=== PATIENT | male | born 1955 | race Caucasian/White ===

== ENCOUNTER 2016-09-17 15:47 | Emergency (ER) | payer MEDICARE ==
[2016-09-17] MEDS ORDERED: DUONEB 0.5-3 MG/3 ml Neb IH ONE ×2 (16:11→16:24)
--- NOTE | 2016-09-17 16:16 | ERPHSYRPT ---
- History of Present Illness Time Seen by Provider: 09/17/16 16:00 Source: patient Patient Subjective Stated Complaint: Pt c/o of being a little short of breath since last night and having pain in the chest that radiates to the shoulders and back when he takes a deep breath. Pt also c/o dizziness for the last couple of days. Triage Nursing Assessment: Pt alert and oriented x3. skin pink warm and dry. afebrile. lung sounds diminished bilaterally. respirations shallow and nonlabored Physician History: CC: short of air Hx: 60 y/o patient of Dr Walker with hx of COPD. He quit smoking 3 years ago. He has couple day hx of increased shortness of breath. Some nonproductive cough. No fever or chills. Uses nebs at home. No home oxygen. No hx of DM. No chest pain. Timing/Duration: day(s) (couple) Severity of Dyspnea-Max: moderate Severity of Dyspnea-Current: moderate Allergies/Adverse Reactions: erythromycin base Allergy (Verified 10/14/15 09:25) Home Medications: Atorvastatin Calcium [Lipitor 20MG Tablet] 20 mg PO BID 10/14/15 [History] Fenofibrate,Micronized 145 mg* [Tricor 145 MG] 145 mg PO DAILY 10/14/15 [ History] Hydrocodone/APAP 10/325 mg [[place] 10/325 MG Tablet] 1 tab PO Q4-6HPRN PRN 10/14/15 [History] Albuterol 2.5 mg/3 ml Neb [Proventil 2.5 mg/3 ml Neb] 2.5 mg IH Q4HPRN PRN 09/17/16 [History] Aspirin 81 mg PO DAILY 09/17/16 [History] Hx Tetanus, Diphtheria Vaccination/Date Given: No Hx Influenza Vaccination/Date Given: Yes (February 2016) Hx Pneumococcal Vaccination/Date Given: Yes - Review of Systems Constitutional: Malaise, No Fever, No Chills Eyes: No Symptoms Ears, Nose, & Throat: No Symptoms Respiratory: Cough, Dyspnea Cardiac: No Chest Pain Abdominal/Gastrointestinal: No Abdominal Pain, No Nausea, No Vomiting Skin: No Rash Neurological: No Headache All Other Systems: Reviewed and Negative - Past Medical History Pertinent Past Medical History: Yes Cardiac History: High Cholesterol Respiratory History: COPD Other Medical History: "bad back" - Past Surgical History Past Surgical History: Yes Musculoskeletal: Orthopedic Surgery Other Surgical History: back surgery x3 - Social History Smoking Status: Former smoker Exposure to second hand smoke: Yes Drug Use: none Patient Lives Alone: No - Nursing Vital Signs Nursing Vital Signs: Initial Vital Signs Temperature 97.8 F Pulse Rate 88 Respiratory Rate 24 Blood Pressure [Right Arm] 116/68 Pain Intensity 3 - Physical Exam General Appearance: alert Eye Exam: PERRL/EOMI Ears, Nose, Throat Exam: normal pharynx Neck Exam: normal inspection, non-tender, supple Respiratory Exam: diminished breath sounds, No crackles/rales, No wheezing Cardiovascular/Chest Exam: regular rate/rhythm Abdominal/Gastrointestinal Exam: soft, No tenderness, No distention Neurologic Exam: alert, oriented x 3, cooperative, sensation nml, No motor deficits Skin Exam: warm, dry, No rash SpO2 Interpretation: normal SpO2: 96 Oxygen Delivery: Room Air - Course Nursing assessment & vital signs reviewed: Yes EKG Interpreted by Me: RATE (99), Sinus Rhythm, NORMAL AXIS, NORMAL INTERVALS ( QTc 442), NORMAL QRS, NORMAL ST-T - Radiology Exams cxr X-ray Interpretation: Teleradiologist Report (nonacute hyperinflated chest) Ordered Tests: Active Orders 24 hr Category Date Time Status EKG-ER Only STAT Care 09/17/16 16:11 Active IV Insertion STAT Care 09/17/16 16:11 Active CHEST 2 VIEWS (PA AND LAT) Stat Exams 09/17/16 16:11 Completed BMP Stat Lab 09/17/16 16:05 Completed CBC W DIFF Stat Lab 09/17/16 16:05 Completed Respiratory Nebulizer STAT RT 09/17/16 16:12 Active Medication Summary Discontinued Medications Generic Name Dose Route Start Last Admin Trade Name Freq PRN Reason Stop Dose Admin Albuterol/Ipratropium 3 ml 09/17/16 16:11 Duoneb 0.5-3 Mg/3 Ml Neb IH 09/17/16 16:12 STAT ONE Albuterol/Ipratropium Confirm 09/17/16 16:24 Duoneb 0.5-3 Mg/3 Ml Neb Administered 09/17/16 16:25 Dose 3 ml IH .STK-MED ONE Methylprednisolone Sodium Succinate 125 mg 09/17/16 16:11 09/17/16 16:25 Solu-Medrol 125 Mg IV 09/17/16 16:12 125 mg STAT ONE Administration Methylprednisolone Sodium Succinate Confirm 09/17/16 16:18 Solu-Medrol 125 Mg Administered 09/17/16 16:19 Dose 125 mg .ROUTE .STK-MED ONE Lab/Rad Data: Laboratory Result Diagrams 09/17/16 16:05 09/17/16 16:05 Laboratory Results 09/17/16 09/17/16 Range/Units 16:05 16:05 WBC 7.7 (4.0-10.5) K/mm3 RBC 5.14 (4.1-5.6) M/mm3 Hgb 14.7 (12.5-18.0) gm/dl Hct 45.0 (42-50) % MCV 87.5 (78-100) fl MCH 28.6 (26-32) pg MCHC 32.7 (32-36) g/dl RDW 14.2 H (11.5-14.0) % Plt Count 263 (150-450) K/mm3 MPV 10.0 H (6-9.5) fl Gran % 63.3 (36.0-66.0) % Lymphocytes % 23.8 L (24.0-44.0) % Monocytes % 9.6 (0.0-12.0) % Eosinophils % 2.8 (0.00-5.0) % Basophils % 0.5 (0.0-0.4) % Basophils # 0.04 (0-0.4) Sodium 140 (136-145) mEq/L Potassium 3.9 (3.5-5.1) mEq/L Chloride 104 (98-107) mEq/L Carbon Dioxide 25.8 (21-32) mEq/L Anion Gap 13.8 (5-15) MEQ/L BUN 18 (9-20) mg/dL Creatinine 1.00 (0.55-1.30) mg/dl Estimated GFR > 60 ML/MIN Glucose 172 H (70-110) MG/DL Calcium 9.0 (8.5-10.1) mg/dL - Progress Progress Note: 09/17/16 16:51 Pt stable and feels better after meds. Will release with instructions. Counseled pt/family regarding: lab results, diagnosis, need for follow-up, rad results - Departure Time of Disposition: 16:53 Departure Disposition: Home Clinical Impression: COPD exacerbation Condition: Fair Critical Care Time: No Referrals: SANDOR WALKER MD [Primary Care Provider] - Instructions: Chronic Obstructive Pulmonary Disease Additional Instructions: Rx prednisone. Rx doxycycline. Use your albuterol every 4 hours. Follow up with Dr Walker Tuesday. You need to have your sugar rechecked. Prescriptions: Doxycycline Hyclate [Vibramycin] 1 cap PO BID #20 capsule Prednisone 20 mg [Deltasone 20 mg] 2 tab PO DAILY #10 tablet
[2016-09-17] MEDS ORDERED: solu-MEDROL 125 MG ONE (16:18)
[2016-09-17] MEDS: solu-MEDROL 125 MG IV ONE (16:25)
[2016-09-17 16:35] LABS: BASOPHIL % 0.5 % (0.0-0.4); Eosinophil % 2.8 % (0.00-5.0); Granulocytes % 63.3 % (36.0-66.0); Lymphocytes % 23.8 % (24.0-44.0); Mean Cell Volume 87.5 fl (78-100); Mean Corpuscular Hemoglobin 28.6 pg (26-32); Monocytes % 9.6 % (0.0-12.0); Platelet Count 263 K/mm3 (150-450); Red Blood Count 5.14 M/mm3 (4.1-5.6); Red Cell Distribution Width 14.2 % (11.5-14.0); White Blood Count 7.7 K/mm3 (4.0-10.5)
--- NOTE | 2016-09-17 16:36 | XRAY ---
Indication: Chest pain. Short of breath. Comparison: None PA/lateral chest hyperinflated with a few calcified granulomas. No focal infiltrate, consolidation, or large effusion. Heart is not enlarged. Vascularity normal. Bony thorax intact with minimal degenerative changes. Impression: Nonacute hyperinflated chest with chronic features.
[2016-09-17 16:44] LABS: ANION GAP 13.8 MEQ/L (5-15); BLOOD UREA NITROGEN 18 mg/dL (9-20); CHLORIDE 104 mEq/L (98-107); Carbon Dioxide 25.8 mEq/L (21-32); Glucose 172 MG/DL (70-110); Potassium 3.9 mEq/L (3.5-5.1); SODIUM 140 mEq/L (136-145)
[2016-09-17 17:06] VITALS: BP 115/72; PULSE 92; O2SAT 94
== END 2016-09-17 17:07 | disposition home or self-care (01) ==
LOC: ED 15:47
DX: J44.1 Chronic obstructive pulmonary disease with (acute) exacerbation (principal)
CPT/HCPCS: 36000; 36415; 71020; 80048; 85025; 93005; 94640; 96374; 99284; J2930; A9270-GY

== ENCOUNTER 2023-03-03 05:52 | Day surgery (SDC) | payer MEDICARE ==
[2023-03-03] MEDS ORDERED: BETADINE 5% OPHTHALMIC 30 ML OP ONE (06:00)
[2023-03-03] MEDS ORDERED: TETRACAINE 0.5% STERI-UNIT SOL OP ONE ×2 (06:00)
[2023-03-03] MEDS ORDERED: Ak-Dilate OPHTHALMIC*** 1.065 ML, Cyclogyl 1% OPHTH SOL 1.065 ML, GATIFLOXACIN 0.5% OPH... OP ONE ×4 (06:00)
[2023-03-03] MEDS ORDERED: NON-FORMULARY ITEM OP ONE (06:00)
[2023-03-03] MEDS ORDERED: Zofran 4 MG/2 ML VIAL IV PRN (06:00)
[2023-03-03] MEDS ORDERED: Lactated Ringers 1,000 ML IV SCH ×2 (06:00→08:30)
[2023-03-03] MEDS ORDERED: cefUROXime sodium 0.005 GM in Sodium Chloride Flush 30 ML*** 0.5 ML IJ ONE (06:00)
[2023-03-03] MEDS ORDERED: ACETAZOLAMIDE 250 MG TABLET PO ONE (06:00)
[2023-03-03] MEDS ORDERED: Lactated Ringers 1,000 ML IV ONE (06:18)
[2023-03-03] MEDS ORDERED: Epinephrine Preservative Free 1 MG/ML IJ ONE (08:00)
[2023-03-03] MEDS ORDERED: Versed 2 MG/2 ML Injection ONE (08:40)
[2023-03-03] MEDS ORDERED: SUBLIMAZE 100 MCG/2 ML ONE (08:40)
[2023-03-03] MEDS ORDERED: DIPRIVAN 200 MG/20 ML IV ONE (08:40)
[2023-03-03 09:06] VITALS: RESP 16
[2023-03-03 09:10] VITALS: O2SAT 93
[2023-03-03 09:15] VITALS: BP 111/86; PULSE 80; TEMP 97.7
== END 2023-03-03 09:22 | disposition home or self-care (01) ==
LOC: SDC 05:52
PROVIDERS: ATTEND Ophthalmology
DX: H25.812 Combined forms of age-related cataract, left eye (principal)
CPT/HCPCS: C1780; J0171; J2250; J2704; J3010; A9270-GY

== ENCOUNTER 2023-05-03 06:04 | Day surgery (SDC) | payer MEDICARE ==
[~2023-05-03 06:04] MED LIST: Ak-Dilate OPHTHALMIC*** 1.065 ML, Cyclogyl 1% OPHTH SOL 1.065 ML, GATIFLOXACIN 0.5% OPH... OP ONE; BETADINE 5% OPHTHALMIC 30 ML OP ONE; NON-FORMULARY ITEM OP ONE; TETRACAINE 0.5% STERI-UNIT SOL OP ONE; cefUROXime sodium 0.005 GM in Sodium Chloride Flush 30 ML*** 0.5 ML IJ ONE
[2023-05-03] MEDS ORDERED: Lactated Ringers 1,000 ML IV ONE (06:22)
[2023-05-03] MEDS: Lactated Ringers 1,000 ML IV SCH ×2 (06:24→06:49)
[2023-05-03 06:35] VITALS: RESP 16
[2023-05-03] MEDS ORDERED: Epinephrine Preservative Free 1 MG/ML IJ ONE (08:00)
[2023-05-03] MEDS ORDERED: ACETAZOLAMIDE 250 MG TABLET PO ONE (08:00)
[2023-05-03] MEDS ORDERED: Zofran 4 MG/2 ML VIAL IV PRN (08:00)
[2023-05-03] MEDS ORDERED: DIPRIVAN 200 MG/20 ML IV ONE (08:57)
[2023-05-03] MEDS ORDERED: Versed 2 MG/2 ML Injection ONE (09:04)
[2023-05-03] MEDS ORDERED: SUBLIMAZE 100 MCG/2 ML ONE (09:05)
[2023-05-03 09:26] VITALS: TEMP 97.7
[2023-05-03 09:45] VITALS: BP 131/92; PULSE 89; O2SAT 93
== END 2023-05-03 09:45 | disposition home or self-care (01) ==
LOC: SDC 06:04
PROVIDERS: ATTEND Ophthalmology
DX: H25.811 Combined forms of age-related cataract, right eye (principal)
CPT/HCPCS: C1780; J0171; J2250; J2704; J3010; A9270-GY

== ENCOUNTER 2024-01-22 16:57 | Emergency (ER) | payer MEDICARE ==
[2024-01-22 17:18] VITALS: RESP 18; TEMP 97.9; O2SAT 95
[2024-01-22] MEDS ORDERED: TORAdol 30 mg Injection ONE (17:54)
[2024-01-22] MEDS: TORAdol 30 mg Injection IM ONE (17:55)
--- NOTE | 2024-01-22 18:06 | ERPHSYRPT ---
- History of Present Illness Time Seen by Provider: 01/22/24 17:15 Source: patient Exam Limitations: no limitations Patient Subjective Stated Complaint: Right foot/ankle pain Triage Nursing Assessment: Patient ambulated back to ED and transferred self to bed. Patient A+O x3. Patient's skin pink, warm and dry. Patient complains of right foot/ankle pain for over a year, but the pain is getting worse the past couple of days. Patient states about a year ago he had a broken right foot and never let it heal. Patient's right foot/ankle noted to be swollen and bruised. Patient complains of pain to right foot/ankle /10, but worse when bearing weigh t. Physician History: 68 years old male with history of arthritis, chronic back pain and fracture right ankle almost a year ago, was placed in a cast which he took off the very next day because he went on a fishing trip and it got red and never saw podiatry/orthopedics again. Patient reports having pain for almost a year but for almost 1 month is progressively worsening and especially for 2 days. Patient reports minimal swelling around ankle/proximal foot but denies any fall or trauma. Hurts to ambulate. Patient denies any numbness or tingling sensation in the toes. Does take [place] at home with no significant relief Has minimal tenderness lateral malleolus. No tenderness in the foot or swelling. Distal neurovascularly intact. Is given Toradol for symptomatic relief. I have obtained x-rays foot and ankle which are negative for new acute fracture dislocation but does have old healing fracture related changes reviewed by me, official report is pending. I believe patient has some arthritic changes with chronic pain and could have some element of sprain. I placed him in a long walking boot, recommended outpatient orthopedic/podiatry follow-up. Recommended continue with [place] which she takes for his back pain and will give ibuprofen and outpatient follow-up. Discussed signs symptoms of worsening needing return to ER which she seems understanding. Stable for discharge. Allergies/Adverse Reactions: erythromycin base Allergy (Verified 01/22/24 17:06) Home Medications: Atorvastatin Calcium [Lipitor 20MG Tablet] 20 mg PO DAILY 10/14/15 [History] Fenofibrate,Micronized 145 mg* [Tricor 145 MG] 145 mg PO DAILY 10/14/15 [History] Hydrocodone/APAP 10/325 mg [[place] 10/325 MG TableT] 1 tab PO Q6H PRN PRN 10/14/15 [History] Hx Tetanus, Diphtheria Vaccination/Date Given: No Hx Influenza Vaccination/Date Given: No Hx Pneumococcal Vaccination/Date Given: Yes Immunizations Up to Date: Yes Travel Risk - International Travel Have you traveled outside of the country in past 3 weeks: No - Emerging Infectious Disease Are you exhibiting symptoms associated with any current EIDs: No - Review of Systems Constitutional: No Symptoms Ears, Nose, & Throat: No Symptoms Respiratory: No Symptoms Cardiac: No Symptoms Abdominal/Gastrointestinal: No Symptoms Musculoskeletal: Joint Pain, Joint Swelling Skin: No Symptoms Neurological: No Symptoms Hematologic/Lymphatic: No Symptoms - Past Medical History Pertinent Past Medical History: Yes Neurological History: No Pertinent History ENT History: Cataracts Cardiac History: High Cholesterol Respiratory History: COPD Endocrine Medical History: No Pertinent History Musculoskeletal History: No Pertinent History GI Medical History: No Pertinent History History: No Pertinent History Psycho-Social History: No Pertinent History Male Reproductive Disorders: No Pertinent History Other Medical History: "bad back" - Past Surgical History Past Surgical History: Yes Neuro Surgical History: No Pertinent History Cardiac: No Pertinent History Respiratory: No Pertinent History Gastrointestinal: Hernia Repair, Other Genitourinary: No Pertinent History Musculoskeletal: Orthopedic Surgery Male Surgical History: No Pertinent History Other Surgical History: back surgery x3 , hiatal hernia repair, orthopedic suregery for R leg frature with hardware - Social History Smoking Status: Former smoker How long have you smoked: 45 years Exposure to second hand smoke: No Drug Use: none Patient Lives Alone: No - Social Determinants of Health Will the patient participate in the screening: Yes Do you worry about a steady place to live?: No Do you have any problems with any of the following?: No known problems In the past 12 months,have you had to go without utilities?: No Transportation Issues: No Has anyone in your support network made you feel unsafe?: No Have you or anyone in your house had to go without enough: No - Nursing Vital Signs Nursing Vital Signs: Initial Vital Signs Temperature 97.9 F 01/22/24 17:09 Pulse Rate 95 H 01/22/24 17:09 Respiratory Rate 18 01/22/24 17:09 Blood Pressure 145/92 01/22/24 17:09 O2 Sat by Pulse Oximetry 95 01/22/24 17:09 Pain Scale Pain Intensity 0 - Physical Exam General Appearance: no apparent distress, alert Neck Exam: normal inspection, full range of motion Cardiovascular/Respiratory Exam: normal breath sounds, regular rate/rhythm Ankle Exam: right ankle: bone tenderness (Malleolus), limited range of motion, soft tissue tenderness, left ankle: non-tender, normal inspection, normal range of motion, no evidence of injury Foot Exam: right foot: bone tenderness (Mild proximal foot), pain, left foot: normal inspection, normal range of motion, bilateral foot: non-tender, no evidence of injury Neuro/Tendon Exam: normal sensation, normal tendon functions Mental Status Exam: alert, oriented x 3, cooperative Skin Exam: normal color SpO2 Interpretation: normal SpO2: 95 O2 Delivery: Room Air Procedures - Splinting Location of Splint: Right Type of Splint: Walking Boot/Shoe Ordered Tests: Active Orders 24 hr Category Date Time Status ANKLE (3 VIEWS) Stat Exams 01/22/24 17:07 Ordered FOOT (MINIMUM 3 VIEWS) Stat Exams 01/22/24 17:07 Ordered Medication Summary Discontinued Medications Generic Name Dose Route Start Last Admin Trade Name Sahil PRN Reason Stop Dose Admin Ketorolac Tromethamine 30 mg 01/22/24 17:52 01/22/24 17:55 Ketorolac Tromethamine 30 Mg/Ml Inj IM 01/22/24 17:53 30 mg STAT ONE Administration Ketorolac Tromethamine Confirm 01/22/24 17:54 Ketorolac Tromethamine 30 Mg/Ml Inj Administered 01/22/24 17:55 Dose 30 mg .ROUTE .STK-MED ONE - Progress Progress: improved Progress Note: 01/22/24 18:06 68 years old male with history of arthritis, chronic back pain and fracture right ankle almost a year ago, was placed in a cast which he took off the very next day because he went on a fishing trip and it got red and never saw podiatry/orthopedics again. Patient reports having pain for almost a year but for almost 1 month is progressively worsening and especially for 2 days. Patient reports minimal swelling around ankle/proximal foot but denies any fall or trauma. Hurts to ambulate. Patient denies any numbness or tingling sensation in the toes. Does take [place] at home with no significant relief Has minimal tenderness lateral malleolus. No tenderness in the foot or swelling. Distal neurovascularly intact. Is given Toradol for symptomatic relief. I have obtained x-rays foot and ankle which are negative for new acute fracture dislocation but does have old healing fracture related changes reviewed by me, official report is pending. I believe patient has some arthritic changes with chronic pain and could have some element of sprain. I placed him in a long walking boot, recommended outpatient orthopedic/podiatry follow-up. Recommended continue with [place] which she takes for his back pain and will give ibuprofen and outpatient follow-up. Discussed signs symptoms of worsening needing return to ER which she seems understanding. Stable for discharge. Counseled pt/family regarding: diagnosis, need for follow-up, rad results Medical Desision Making - Diagnostic Testing Diagnostic test were ordered, analyzed, and reviewed by me: Yes Radiological Interpretation: Interpreted by me, Reviewed by me - Risk of complications The pt has a mod risk of morbidity or mortality based on: Need for prescription drug management - Departure Departure Disposition: Home Clinical Impression: Right ankle pain Condition: Stable Critical Care Time: No Referrals: SANDOR WALKER MD [Primary Care Provider] - Follow up/PCP as directed REMBERTO CARLSON DPM [ACTIVE STAFF] - Follow up/PCP as directed (Call tomorrow for reevaluation appointment) Instructions: Ankle Sprain ED Additional Instructions: Take pain medications as needed. Avoid exertional activities. Follow-up with podiatry for reevaluation. Return to ER for increasing pain or swelling at Forms: Ortho Referral Prescriptions: Ibuprofen 600 mg PO Q6HPRN PRN 10 Days #20 tablet PRN Reason: Pain
[2024-01-22 18:08] VITALS: BP 120/84; PULSE 62
--- NOTE | 2024-01-22 22:02 | XRAY ---
Indication: Pain. Comparison: None 3 view right ankle demonstrates osteopenia, old partially united bimalleolar fractures with heterotopic ossifications, and moderate talotibial degenerative changes. No other bony, articular, or soft tissue abnormalities.
--- NOTE | 2024-01-22 22:02 | XRAY ---
Indication: Pain. Comparison: None 3 nonweightbearing views right foot demonstrates osteopenia, old partially united bimalleolar fractures with heterotopic ossifications, and moderate talotibial degenerative changes. No other bony, articular, or soft tissue abnormalities.
== END 2024-01-22 18:20 | disposition home or self-care (01) ==
LOC: ED 16:57
DX: M25.571 Pain in right ankle and joints of right foot (principal); E78.5 Hyperlipidemia, unspecified; Z79.891 Long term (current) use of opiate analgesic; Z79.899 Other long term (current) drug therapy
CPT/HCPCS: 73610; 73630; 96372; 99283; J1885; L4386

== ENCOUNTER 2024-02-14 08:57 | Day surgery (SDC) | payer MEDICARE ==
[2024-02-14] MEDS ORDERED: EXPAREL 133 MG/10 ML VIAL IJ ONE ×2 (08:58→10:24)
[2024-02-14] MEDS ORDERED: Lactated Ringers 1,000 ML IV ONE ×2 (09:05→13:13)
[2024-02-14] MEDS ORDERED: TYLENOL EXTRA STRENGTH 500 MG ONE (09:09)
[2024-02-14] MEDS ORDERED: CEFAZOLIN 2 GM/100 ML NaCl 2 GM/100 ML IVPB IV ONE (09:09)
[2024-02-14] MEDS ORDERED: Decadron 4 MG ONE (09:09)
[2024-02-14] MEDS ORDERED: celeBREX 100 MG ONE (09:10)
[2024-02-14] MEDS ORDERED: NEURONTIN ONE (09:10)
[2024-02-14] MEDS: NEURONTIN PO ONE (09:14)
[2024-02-14] MEDS: CEFAZOLIN 2 GM/100 ML NaCl 2 GM/100 ML IVPB IV SCH (09:14)
[2024-02-14] MEDS: celeBREX 100 MG PO ONE (09:14)
[2024-02-14] MEDS: Lactated Ringers 1,000 ML IV SCH (09:14)
[2024-02-14] MEDS: TYLENOL EXTRA STRENGTH 500 MG PO ONE (09:14)
[2024-02-14] MEDS: Decadron 4 MG PO ONE (09:14)
[2024-02-14 09:16] VITALS: RESP 18
[2024-02-14] MEDS ORDERED: PIGGYBACK IV ONE (09:39)
[2024-02-14] MEDS ORDERED: [UNRECOGNIZED DRUG - OTHER] IV ONE (09:39)
[2024-02-14] MEDS ORDERED: TRANEXAMIC IV ONE (09:39)
[2024-02-14] MEDS: TRANEXAMIC 1,000 MG/100ML-NACL 1,000 MG/100 ML PIGGYBACK IV ONE (09:41)
[2024-02-14 09:46] LABS: Hematocrit 42.5 % (40.1-51.0); Mean Cell Volume 86.7 fL (79.0-92.2); Mean Corpuscular Hemoglobin 28.6 pg (25.7-32.2); Mean Corpuscular Hgb Concent. 32.9 g/dL (32.3-36.5); Mean Platelet Volume 9.3 fL (9.4-12.4); Platelet Count 297 x10^3/uL (163-337); Red Cell Distribution Width 13.9 % (11.6-14.4); White Blood Count 8.6 x10^3/uL (4.23-9.07)
[2024-02-14 10:00] LABS: ALBUMIN 4.6 g/dL (3.5-5.0); ANION GAP 17.3 MEQ/L (5-15); BILIRUBIN,TOTAL 0.7 mg/dL (0.2-1.3); Calcium 9.6 mg/dL (8.4-10.2); Creatinine 1 0.82 mg/dL (0.66-1.25); EST GLOMERULAR FILTRATION RATE 95.7 ML/MIN; Total Protein 7.8 g/dL (6.3-8.2)
[2024-02-14] MEDS ORDERED: Xylocaine-Mpf 2% 5 Ml Vial ONE (10:26)
[2024-02-14] MEDS ORDERED: Versed 2 MG/2 ML Injection ONE ×2 (10:26→13:08)
[2024-02-14] MEDS ORDERED: SUBLIMAZE 100 MCG/2 ML ONE (10:26)
[2024-02-14] MEDS ORDERED: Marcaine 0.5%/Epinephrine 10 ML ONE (10:27)
[2024-02-14] MEDS ORDERED: DIPRIVAN 200 MG/20 ML IV ONE (13:00)
[2024-02-14] MEDS ORDERED: ROCURONIUM BROMIDE IV ONE (13:00)
[2024-02-14] MEDS ORDERED: Zofran 4 MG/2 ML VIAL ONE (14:04)
[2024-02-14] MEDS ORDERED: BRIDION 200MG/2ML IV ONE (14:35)
--- NOTE | 2024-02-14 14:53 | XRAY ---
Indication: Right foot subtalar joint arthrodesis. Intraoperative fluoroscopy provided for 1 minute 36 seconds. 10 digital spot images submitted for interpretation ultimately demonstrates talocalcaneal arthrodesis with 2 traversing screws. Correlate with intraoperative findings/report.
--- NOTE | 2024-02-14 15:25 | XRAY ---
One minute and 36 seconds of fluoroscopy was used in surgery for a right foot subtalar joint arthrodesis.
[2024-02-14] MEDS: Xopenex 1.25 MG/0.5 ML UD NEBULE IH ONE (15:37)
[2024-02-14 16:00] VITALS: TEMP 97.3; O2SAT 92
[2024-02-14 16:16] VITALS: BP 116/75; PULSE 89
--- NOTE | 2024-02-16 10:37 | OP ---
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 3) Right ankle pain. 4) Equinus right ankle. 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 3) Right ankle pain. 4) Equinus right ankle. PROCEDURE: Subtalar joint arthrodesis. SURGEON: Apollo Villegas DPM CODING COMPLIANCE SPECIALIST: Hunter Kee NP ANESTHESIA: General, plus a preoperative popliteal and saphenous block. HEMOSTASIS: Thigh tourniquet set to 325 mmHg for a total of 36 total tourniquet minutes. ESTIMATED BLOOD LOSS: Minimal. MATERIALS: 4-0 Monocryl, 3-0 nylon, a partially-threaded headed screw 6.5 x 70 and a 6.5 x 80 Freddy. INJECTABLES: See Anesthesia report for details. INDICATIONS: The patient is a very pleasant 68-year-old male known to my service for osteoarthritis of the ankle and subtalar joint. As a result, patient is actually a decent candidate for a total joint replacement. Given the fact that patient does have adaptation to his subtalar joint, we decided to proceed with a subtalar joint arthrodesis prior to the total joint replacement and a period of 6 weeks nonweightbearing where the first stage will take place 4 weeks prior to and then in 4 weeks from today, on 03/13, we will plan to proceed with the total joint replacement in order to get him up and weightbearing in a quicker fashion and start physical therapy 2 weeks after the procedure. The patient has been made aware of all risks, complications, and benefits of surgical intervention at this time including but not limited to infection, hematoma, seroma, possibility of delayed wound healing, non-wound healing, possibility of failure, surgical intervention, possibility of nonunion of the bone, and need for further surgical intervention as this is a staged procedure. The patient understands this and wishes to proceed. Plenty of time was allowed for the patient to ask questions, which were answered to his apparent satisfaction. It is at this time we decided to proceed. DESCRIPTION OF PROCEDURE AND FINDINGS: Patient was brought into the PACU prior to the procedure and provided a popliteal and saphenous block. Following this, the patient was brought into the operating room, placed on the operating room table in the supine position. At this time, general anesthesia was administered until the patient was adequately sedated. Following this, a well-padded thigh tourniquet was applied and the pressure was set to 325 mmHg. The right lower extremity was prepped and draped in the typical sterile fashion and lowered onto the surgical field. At this time, under fluoroscopic guidance, the subtalar joint was identified in a neutral position. This was utilized to plan out our incision site from the tip of the fibula to the anterior process of the calcaneus. Linear incision was made along this planned surgical site, being careful not to damage any neurovascular structures along the way. Once the incision was made, the osteotome was utilized to resect the cervical ligament within the subtalar joint. Once that was resected, the subtalar joint was prepped utilizing the combination of rongeurs, curettes, osteotomes, Honey [place], and once that was performed, copious amounts of sterile saline were utilized to flush the surgical site. A significant amount of cartilage was removed. Once again, the space was inspected and the 2.0 mm drill as well as a curved osteotome with mallet were utilized to fenestrate and fish scale the subtalar joint posterior and middle facet. Once this was performed, one 6.5 x 70 and one 6.5 x 80 mm 16 mm partially-threaded headed screw was then introduced as perpendicular to the posterior facet as possible. Once this was accomplished, a significant amount of compression was obtained through the surgical site. X-rays were taken looking at the calcaneal axial and the lateral views deeming excellent compression through the surgical site. Following this, copious amounts of sterile saline were utilized to flush the surgical site and 4-0 Monocryl was utilized to coapt the subcutaneous skin edges and 3-0 nylon was utilized to coapt the skin edges in a horizontal mattress-type fashion. Following this, a dressing consisting of Betadine, Adaptic, 4x4, Kerlix, ABD and a well-padded posterior splint was applied to the right lower extremity. Patient was then reversed from anesthesia and returned to postoperative anesthesia care unit with vital signs stable and vascular status intact. The patient handled the anesthesia, as well as the procedure, without significant complication. Postoperative orders as indicated in the patient's discharge chart.
== END 2024-02-14 16:16 | disposition home or self-care (01) ==
LOC: SDC 08:57
PROVIDERS: ATTEND Podiatrist Foot & Ankle Surgery
DX: M19.071 Primary osteoarthritis, right ankle and foot (principal); M25.571 Pain in right ankle and joints of right foot; M21.961 Unspecified acquired deformity of right lower leg
CPT/HCPCS: 28725; 36415; 73630; 76000; 76937; 80053; 85027; 93005; 94640; 97116; C1713; J0690; J2250; J2405; J2704; J3010; A9270-GY

== ENCOUNTER 2024-02-18 13:40 | Emergency (ER) | payer MEDICARE ==
--- NOTE | 2024-02-18 13:44 | ERPHSYRPT ---
- History of Present Illness Time Seen by Provider: 02/18/24 13:43 Source: patient Exam Limitations: no limitations Physician History: This is a 68-year-old white male patient who was brought into the emergency department by private vehicle escorted by family member. Patient's primary care provider is Dr. Walker and his podiatric surgeon is Dr. Bustillos. Patient is here because he is concerned about increased amount of bleeding on the lateral aspect of his postsurgical bandage as well as increase amount of swelling and pain in his right calf and ankle. On 02/14/2024 patient underwent a right subtalar joint arthrodesis by Dr. Bustillos. Patient has not been coughing. He has not had any hemoptysis. He is not short of breath. Patient was given a prescription for antibiotics and Sloan pain medicine. He is also taking ibuprofen. No postop anticoagulation treatment was provided to the patient patient is concerned about a blood clot in his leg. Patient has a history of COPD/asthma and hyperlipidemia Occurred: yesterday Quality: aching, throbbing Severity of Pain-Max: moderate Severity of Pain-Current: moderate Lower Extremities Pain: ankle: right, other: right Modifying Factors: Improves With: movement Associated Symptoms: other (Patient is on no weightbearing restrictions pos toperatively) Allergies/Adverse Reactions: erythromycin base Allergy (Verified 02/18/24 13:52) Home Medications: Atorvastatin Calcium [Lipitor 20MG Tablet] 20 mg PO DAILY 10/14/15 [History] Fenofibrate,Micronized 145 mg* [Tricor 145 MG] 48 mg PO DAILY 10/14/15 [History] Hydrocodone/APAP 10/325 mg [Sloan 10/325 MG TableT] 1 tab PO Q6H PRN PRN 10/14/15 [History] Albuterol 2.5 mg/3 ml Neb [Proventil 2.5 mg/3 ml Neb] 2.5 mg NEB UD 02/01/24 [History] Albuterol Sulfate [Albuterol Sulfate Hfa] 1 puff NEB UD 02/01/24 [History] Hx Tetanus, Diphtheria Vaccination/Date Given: No Hx Influenza Vaccination/Date Given: No Hx Pneumococcal Vaccination/Date Given: Yes Travel Risk - International Travel Have you traveled outside of the country in past 3 weeks: No - Emerging Infectious Disease Are you exhibiting symptoms associated with any current EIDs: No - Review of Systems Constitutional: No Symptoms Eyes: No Symptoms Ears, Nose, & Throat: No Symptoms Respiratory: No Symptoms Cardiac: No Symptoms Abdominal/Gastrointestinal: No Symptoms Genitourinary Symptoms: No Symptoms Musculoskeletal: Joint Pain (Right ankle) Skin: Other (Skin abrasion right anterior knee) Neurological: No Symptoms Psychological: No Symptoms Endocrine: No Symptoms Hematologic/Lymphatic: No Symptoms Immunological/Allergic: No Symptoms All Other Systems: Reviewed and Negative - Past Medical History Pertinent Past Medical History: Yes Neurological History: No Pertinent History ENT History: Cataracts Cardiac History: High Cholesterol Respiratory History: COPD Endocrine Medical History: No Pertinent History Musculoskeletal History: No Pertinent History GI Medical History: No Pertinent History History: No Pertinent History Psycho-Social History: No Pertinent History Male Reproductive Disorders: No Pertinent History Other Medical History: "bad back" - Past Surgical History Past Surgical History: Yes Neuro Surgical History: No Pertinent History Cardiac: No Pertinent History Respiratory: No Pertinent History Gastrointestinal: Hernia Repair, Other Genitourinary: No Pertinent History Musculoskeletal: Orthopedic Surgery Male Surgical History: No Pertinent History Other Surgical History: back surgery x3 , hiatal hernia repair, orthopedic suregery for R leg frature with hardware - Social History Smoking Status: Former smoker How long have you smoked: 45 years Exposure to second hand smoke: No Drug Use: none Patient Lives Alone: No - Social Determinants of Health Will the patient participate in the screening: Yes Do you worry about a steady place to live?: No In the past 12 months,have you had to go without utilities?: No Transportation Issues: No Has anyone in your support network made you feel unsafe?: No Have you or anyone in your house had to go without enough: No - Nursing Vital Signs Nursing Vital Signs: Initial Vital Signs Temperature 97.8 F 02/18/24 13:53 Pulse Rate 104 H 02/18/24 13:53 Respiratory Rate 20 02/18/24 13:53 Blood Pressure 123/85 02/18/24 13:53 O2 Sat by Pulse Oximetry 94 L 02/18/24 13:53 Pain Scale Pain Intensity 5 - Physical Exam General Appearance: no apparent distress, alert, anxiety, thin Eyes, Ears, Nose, Throat Exam: normal ENT inspection, moist mucous membranes Neck Exam: normal inspection, non-tender, supple, full range of motion Cardiovascular/Respiratory Exam: chest non-tender, no respiratory distress Gastrointestinal/Abdominal Exam: non-tender Back Exam: normal inspection, normal range of motion, No CVA tenderness, No vertebral tenderness Hips Exam: bilateral: non-tender, normal inspection, normal range of motion, no evidence of injury Legs Exam: bilateral leg: non-tender, normal inspection, normal range of motion, no evidence of injury Knees Exam: right knee: other (Skin abrasion anterior knee), left knee: normal inspection, no evidence of injury, bilateral knee: non-tender, normal range of motion Ankle Exam: right ankle: bone tenderness, ecchymosis (Laterally), limited range of motion, soft tissue tenderness, swelling, other, left ankle: non-tender, normal inspection, no evidence of injury Foot Exam: right foot: bone tenderness, ecchymosis, pain, soft tissue tenderness, other (Postoperative changes, patient in postoperative posterior short splint), left foot: non-tender, normal inspection, normal range of motion, no evidence of injury Neuro/Tendon Exam: normal sensation, normal tendon functions Mental Status Exam: alert, oriented x 3, cooperative Skin Exam: other (Incision closure site intact. Mild skin venous oozing present. Ecchymosis present around suture site.) SpO2 Interpretation: normal O2 Delivery: Room Air - Course Nursing assessment & vital signs reviewed: Yes Ordered Tests: Active Orders 24 hr Category Date Time Status VENOUS UNILAT/LIMITED EXTREMIT [US] Stat Exams 02/18/24 14:03 Taken - Progress Progress: pain not gone completely Progress Note: 02/18/24 14:22 My medical decision making and the assignment of low to moderate complexity of this patient's medical issue today is based on review of the patient's past medical history, review the patient's medication list, review the patient drug allergy list, history present illness and physical findings on examination. The workup in this patient includes taking down his postoperative dressing to evaluate his surgical site. We will also order a venous Doppler of the right lower extremity to evaluate for DVT. This is the patient's primary concern. Differential diagnosis includes but is not limited to DVT, postoperative bleeding 02/18/24 14:58 The campus aide/technologist Divina, provided me with the preliminary report right lower extremity venous Doppler negative for DVT Counseled pt/family regarding: diagnosis, need for follow-up, rad results Medical Desision Making - Independent Historian Additional History obtained from: Family - Diagnostic Testing Diagnostic test were ordered, analyzed, and reviewed by me: Yes Radiological Interpretation: Other (Preliminary report provided to me from editing computer publisher) - Risk of complications Low Risk: Low risk of morbidity from additional dx testing or treatment - Departure Departure Disposition: Home Clinical Impression: Acute postoperative pain of right foot, Postoperative bleeding from incision Condition: Stable Critical Care Time: No Referrals: SANDOR WALKER MD [Primary Care Provider] - Follow up/PCP as directed Additional Instructions: Continue with your postoperative management/instructions. Call Dr. Bustillos's office on 02/20/2024, to make arrangements for follow-up appointment and to see if he wants to see you earlier than 02/21/2024. Continue your medications as prescribed
[2024-02-18 14:14] VITALS: PULSE 104; RESP 20; TEMP 97.8
[2024-02-18] MEDS ORDERED: Norflex 60 MG/2 ML ONE (15:13)
[2024-02-18] MEDS: Norflex 60 MG/2 ML IM ONE (15:14)
[2024-02-18 16:15] VITALS: BP 103/75; O2SAT 92
--- NOTE | 2024-02-18 18:56 | XRAY ---
Indication: Right leg postop pain. 2-dimensional sonogram and color Doppler imaging major venous vessels right leg performed. Comparison: None No thrombus seen in the examined deep venous vessels right leg including greater saphenous vein. Veins demonstrate normal compressibility. Venous waveforms are normal with and without augmentation. Impression: Right leg negative for DVT. Comment: Preliminary report was given.
== END 2024-02-18 15:15 | disposition home or self-care (01) ==
LOC: ED 13:40
DX: L76.22 Postprocedural hemorrhage of skin and subcutaneous tissue following other procedure (principal); G89.18 Other acute postprocedural pain; M79.671 Pain in right foot; E78.5 Hyperlipidemia, unspecified; Z79.891 Long term (current) use of opiate analgesic; Z79.899 Other long term (current) drug therapy
CPT/HCPCS: 93971; 96372; 99283; J2360

== ENCOUNTER 2024-02-21 14:32 | Emergency (ER) | payer MEDICARE ==
--- NOTE | 2024-02-21 14:38 | ERPHSYRPT ---
- History of Present Illness Time Seen by Provider: 02/21/24 14:38 Source: patient, family Exam Limitations: no limitations Physician History: This is a thin 68-year-old white male patient who was brought to the emergency department by private vehicle and in a wheelchair accompanied by his spouse secondary to dizziness that came on suddenly when the patient was on his way into the hospital radiology department to obtain an outpatient x-ray of his right ankle. Patient's primary care provider is Dr. Walker and his podiatric surgeon is Dr. Bustillos. This patient came to the hospital to obtain a right ankle x-ray before his 230 appointment with his s3b multi sensor operator, Dr. Bustillos. Dr. Bustillos evaluated this patient on 02/13/2024. While he was here, before he obtained his outpatient x-ray of his right ankle he became dizzy. He is not short of breath he has no chest pain. His dizziness has resolved prior to my evaluation of him. Patient is not on any anticoagulation therapy. He does have a history of COPD, asthma and hyperlipidemia. Timing/Duration: today Severity: mild Character of Deficits: none Deficits: no difficulties Baseline/Normal Cognition: alert oriented x 3 Current Cognition: alert oriented x 3 Baseline Gait: unable to walk (At this time secondary to him being in his postop erative period) Associated Symptoms: denies symptoms Allergies/Adverse Reactions: erythromycin base Allergy (Verified 02/18/24 13:52) Home Medications: Atorvastatin Calcium [Lipitor 20MG Tablet] 20 mg PO DAILY 10/14/15 [History] Fenofibrate,Micronized 145 mg* [Tricor 145 MG] 48 mg PO DAILY 10/14/15 [History] Hydrocodone/APAP 10/325 mg [[place] 10/325 MG TableT] 1 tab PO Q6H PRN PRN 10/14/15 [History] Albuterol 2.5 mg/3 ml Neb [Proventil 2.5 mg/3 ml Neb] 2.5 mg NEB UD 02/01/24 [History] Albuterol Sulfate [Albuterol Sulfate Hfa] 1 puff NEB UD 02/01/24 [History] Hx Tetanus, Diphtheria Vaccination/Date Given: No Hx Influenza Vaccination/Date Given: No Hx Pneumococcal Vaccination/Date Given: Yes Travel Risk - International Travel Have you traveled outside of the country in past 3 weeks: No - Emerging Infectious Disease Are you exhibiting symptoms associated with any current EIDs: No - Review of Systems Constitutional: No Symptoms Eyes: No Symptoms Ears, Nose, & Throat: No Symptoms Respiratory: No Symptoms Cardiac: No Symptoms Abdominal/Gastrointestinal: No Symptoms Genitourinary Symptoms: No Symptoms Musculoskeletal: Other Neurological: Dizziness (Resolved prior to my evaluation of him) Psychological: No Symptoms Endocrine: No Symptoms Hematologic/Lymphatic: No Symptoms Immunological/Allergic: No Symptoms All Other Systems: Reviewed and Negative - Past Medical History Pertinent Past Medical History: Yes Neurological History: No Pertinent History ENT History: Cataracts Cardiac History: High Cholesterol Respiratory History: COPD Endocrine Medical History: No Pertinent History Musculoskeletal History: No Pertinent History GI Medical History: No Pertinent History History: No Pertinent History Psycho-Social History: No Pertinent History Male Reproductive Disorders: No Pertinent History Other Medical History: "bad back" - Past Surgical History Past Surgical History: Yes Neuro Surgical History: No Pertinent History Cardiac: No Pertinent History Respiratory: No Pertinent History Gastrointestinal: Hernia Repair, Other Genitourinary: No Pertinent History Musculoskeletal: Orthopedic Surgery Male Surgical History: No Pertinent History Other Surgical History: back surgery x3 , hiatal hernia repair, orthopedic suregery for R leg frature with hardware - Social History Smoking Status: Former smoker How long have you smoked: 45 years Exposure to second hand smoke: No Drug Use: none Patient Lives Alone: No - Social Determinants of Health Will the patient participate in the screening: Yes Do you worry about a steady place to live?: No In the past 12 months,have you had to go without utilities?: No Transportation Issues: No Has anyone in your support network made you feel unsafe?: No Have you or anyone in your house had to go without enough: No - Nursing Vital Signs Nursing Vital Signs: Initial Vital Signs Pulse Rate 83 02/21/24 14:37 Respiratory Rate 22 02/21/24 14:37 Blood Pressure 105/69 02/21/24 14:37 O2 Sat by Pulse Oximetry 96 02/21/24 14:37 Pain Scale Pain Intensity 4 - Sheyla Coma Scale Best Eye Response (Lyman): (4) open spontaneously Best Verbal Response (Sheyla): (5) oriented Best Motor Response (Sheyla): (6) obeys commands Sheyla Total: 15 - Physical Exam General Appearance: no apparent distress, alert, thin Eye Exam: bilateral eye: normal inspection, PERRL, EOMI Ears, Nose, Throat Exam: normal ENT inspection, moist mucous membranes Neck Exam: normal inspection, non-tender, supple, full range of motion Respiratory: normal breath sounds, lungs clear, airway intact, No chest tenderness, No respiratory distress Cardiovascular: regular rate/rhythm, normal heart sounds, normal peripheral pulses Gastrointestinal: soft, normal bowel sounds, No tenderness Rectal Exam: not done Back Exam: normal inspection, normal range of motion, No CVA tenderness, No vertebral tenderness Extremity Exam: normal inspection, normal range of motion, pelvis stable Mental Status: alert, oriented x 3, cooperative doctor's assistant Exam: normal hearing, normal speech, PERRL, tongue midline Motor/Sensory: no motor deficit, no sensory deficit Skin Exam: normal color, warm, dry SpO2 Interpretation: normal O2 Delivery: Room Air - Course Nursing assessment & vital signs reviewed: Yes EKG Interpreted by Me: RATE (86), Sinus Rhythm, NORMAL AXIS, NORMAL INTERVALS, NORMAL QRS, Other (The computer readout says questionable borderline ST elevation lateral leads. QTc is 432. Patient is not having any chest pain.) Ordered Tests: Active Orders 24 hr Category Date Time Status EKG-ER Only STAT Care 02/21/24 15:27 Active IV Insertion STAT Care 02/21/24 15:27 Active Orthostatic Vital Signs STAT Care 02/21/24 15:27 Active ANKLE (3 VIEWS) Stat Exams 02/21/24 15:02 Completed HEAD WITHOUT CONTRAST [CT] Stat Exams 02/21/24 15:27 Completed CBC W DIFF Stat Lab 02/21/24 14:50 Completed CMP Stat Lab 02/21/24 14:50 Completed ETHYL ALCOHOL Stat Lab 02/21/24 14:50 Completed MAGNESIUM Stat Lab 02/21/24 14:50 Completed TROPONIN Q4H Lab 02/21/24 14:50 Completed TROPONIN Q4H Lab 02/21/24 19:30 Ordered TROPONIN Q4H Lab 02/21/24 23:30 Ordered UA W/RFX UR CULTURE Stat Lab 02/21/24 16:30 Completed Medication Summary Discontinued Medications Generic Name Dose Route Start Last Admin Trade Name Freq PRN Reason Stop Dose Admin Sodium Chloride 500 mls @ 500 mls/hr 02/21/24 15:28 02/21/24 17:08 Sodium Chloride 0.9% 500 Ml IV 02/21/24 16:27 Infused .Q1H ONE Infusion Sodium Chloride Confirm 02/21/24 16:07 Sodium Chloride 0.9% 500 Ml Administered 02/21/24 16:08 Dose 500 mls @ ud IV .STK-MED ONE Lab/Rad Data: Laboratory Result Diagrams 02/21/24 14:50 02/21/24 14:50 Laboratory Results 02/21/24 02/21/24 02/21/24 Range/Units 16:30 14:50 14:50 WBC (4.23-9.07) x10^3/uL RBC (4.63-6.08) x10^6/uL Hgb (13.7-17.5) g/dL Hct (40.1-51.0) % MCV (79.0-92.2) fL MCH (25.7-32.2) pg MCHC (32.3-36.5) g/dL RDW (11.6-14.4) % Plt Count (163-337) x10^3/uL MPV (9.4-12.4) fL Gran % (34.0-67.9) % Immature Gran % (Auto) (0.001-0.429) % Nucleat RBC Rel Count (0.00-0.2) % Eos # (Auto) (0.04-0.54) x10^3/uL Immature Gran # (Auto) (0.001-0.031) x10^3u/L Absolute Lymphs (auto) (1.32-3.57) x10^3/uL Absolute Monos (auto) (0.30-0.82) x10^3/uL Absolute Nucleated RBC (0.00-0.012) x10^3u/L Lymphocytes % (21.8-53.1) % Monocytes % (5.3-12.2) % Eosinophils % (0.8-7.0) % Basophils % (0.2-1.2) % Absolute Granulocytes (1.78-5.38) x10^3/uL Basophils # (0.01-0.08) x10^3/uL Sodium 140 (135-145) mmol/L Potassium 4.3 (3.5-5.1) mmol/L Chloride 106 (98-107) mmol/L Carbon Dioxide 19 L (22-30) mmol/L Anion Gap 19.8 H (5-15) MEQ/L BUN 25 H (9-20) mg/dL Creatinine 0.96 (0.66-1.25) mg/dL Estimated GFR 86.1 ML/MIN Glucose 169 H (74-106) mg/dL Calcium 9.5 (8.4-10.2) mg/dL Magnesium 1.9 (1.6-2.3) mg/dL Total Bilirubin 0.50 (0.2-1.3) mg/dL AST 37 (17-59) U/L ALT 45 (0-50) U/L Alkaline Phosphatase 95 (38-126) U/L Troponin I < 0.012 (0.000-0.033) ng/mL Serum Total Protein 7.5 (6.3-8.2) g/dL Albumin 4.3 (3.5-5.0) g/dL Urine Color Yellow (Yellow) Urine Appearance Cloudy A (Clear) Urine pH 5.0 (4.6-8.0) Ur Specific Randolph >=1.030 A (1.005-1.030) Urine Protein 30 (Negative) Urine Glucose (UA) Negative (Negative) mg/dL Urine Ketones Trace A (Negative) Urine Blood Small A (Negative) Urine Nitrite Negative (Negative) Urine Bilirubin Negative (Negative) Urine Urobilinogen 0.2 (0.2) mg/dL Ur Leukocyte Esterase Negative (Negative) U Hyaline Cast (Auto) 11-20 (0-2) /LPF Urine Microscopic RBC 0-2 (0-5) /HPF Urine Microscopic WBC 0-2 (0-5) /HPF Ur Epithelial Cells None Seen (None Seen) /HPF Urine Bacteria None Seen (None Seen) /HPF Urine Culture Reflexed NO (NO) Ethyl Alcohol < 10 (0-10) mg/dL 02/21/24 Range/Units 14:50 WBC 8.1 (4.23-9.07) x10^3/uL RBC 4.75 (4.63-6.08) x10^6/uL Hgb 13.6 L (13.7-17.5) g/dL Hct 41.4 (40.1-51.0) % MCV 87.2 (79.0-92.2) fL MCH 28.6 (25.7-32.2) pg MCHC 32.9 (32.3-36.5) g/dL RDW 13.9 (11.6-14.4) % Plt Count 319 (163-337) x10^3/uL MPV 9.8 (9.4-12.4) fL Gran % 63.2 (34.0-67.9) % Immature Gran % (Auto) 0.4 (0.001-0.429) % Nucleat RBC Rel Count 0.0 (0.00-0.2) % Eos # (Auto) 0.22 (0.04-0.54) x10^3/uL Immature Gran # (Auto) 0.03 (0.001-0.031) x10^3u/L Absolute Lymphs (auto) 1.90 (1.32-3.57) x10^3/uL Absolute Monos (auto) 0.78 (0.30-0.82) x10^3/uL Absolute Nucleated RBC 0.00 (0.00-0.012) x10^3u/L Lymphocytes % 23.5 (21.8-53.1) % Monocytes % 9.7 (5.3-12.2) % Eosinophils % 2.7 (0.8-7.0) % Basophils % 0.5 (0.2-1.2) % Absolute Granulocytes 5.10 (1.78-5.38) x10^3/uL Basophils # 0.04 (0.01-0.08) x10^3/uL Sodium (135-145) mmol/L Potassium (3.5-5.1) mmol/L Chloride (98-107) mmol/L Carbon Dioxide (22-30) mmol/L Anion Gap (5-15) MEQ/L BUN (9-20) mg/dL Creatinine (0.66-1.25) mg/dL Estimated GFR ML/MIN Glucose (74-106) mg/dL Calcium (8.4-10.2) mg/dL Magnesium (1.6-2.3) mg/dL Total Bilirubin (0.2-1.3) mg/dL AST (17-59) U/L ALT (0-50) U/L Alkaline Phosphatase (38-126) U/L Troponin I (0.000-0.033) ng/mL Serum Total Protein (6.3-8.2) g/dL Albumin (3.5-5.0) g/dL Urine Color (Yellow) Urine Appearance (Clear) Urine pH (4.6-8.0) Ur Specific Randolph (1.005-1.030) Urine Protein (Negative) Urine Glucose (UA) (Negative) mg/dL Urine Ketones (Negative) Urine Blood (Negative) Urine Nitrite (Negative) Urine Bilirubin (Negative) Urine Urobilinogen (0.2) mg/dL Ur Leukocyte Esterase (Negative) U Hyaline Cast (Auto) (0-2) /LPF Urine Microscopic RBC (0-5) /HPF Urine Microscopic WBC (0-5) /HPF Ur Epithelial Cells (None Seen) /HPF Urine Bacteria (None Seen) /HPF Urine Culture Reflexed (NO) Ethyl Alcohol (0-10) mg/dL - Progress Progress: improved Progress Note: 02/21/24 15:50 My medical decision making and the assignment of moderate complexity to this patient's medical issue today is based on review of the patient's past medical history, review of the patient's medication list, review the patient drug allergy list, history present illness and physical findings on examination. The workup in this patient includes placement of intravenous line, CBC, CMP, troponin level, twelve-lead EKG, magnesium level, CT scan of the head without contrast, providing the patient with normal saline infusion, urinalysis, blood alcohol level, CT scan of the head without contrast. In addition, we ordered the patient's right ankle x-ray that was supposed to be performed prior to his outpatient podiatric appointment today. We will also call Dr. Bustillos's office to see if Dr. Bustillos would be available to see this patient in the emergency department. The patient was told it may not be possible but we would ask. Differential diagnosis includes but is not limited to sinusitis, acute intracranial abnormality, dehydration, anemia, infection, myocardial infarction, electrolyte abnormalities, arrhythmias 02/21/24 17:13 I interpreted the patient's laboratory data results. The patient has evidence of mild dehydration but no other acute, emergent medical issues. His hemoglobin is normal. The 3 view of the right ankle x-ray was interpreted by the radiologist and I reviewed the impression. The impression states interval talocalcaneal arthrodesis with 2 intact traversing screws. Compared to similar study dated January 22, 2024 the remaining ankle findings are unchanged. The CT scan of the head without contrast was interpreted by the radiologist and I reviewed the impression. The impression states normal CT scan of the head without contrast. Counseled pt/family regarding: lab results, diagnosis, need for follow-up, rad results Medical Desision Making - Independent Historian Additional History obtained from: Spouse - Diagnostic Testing Diagnostic test were ordered, analyzed, and reviewed by me: Yes Radiological Interpretation: Reviewed by me, Teleradiologist Report - Risk of complications Low Risk: Low risk of morbidity from additional dx testing or treatment - Departure Departure Disposition: Home Clinical Impression: Mild dehydration, Dizziness Condition: Stable Critical Care Time: No Referrals: SANDOR WALKER MD [Primary Care Provider] - Follow up/PCP as directed Additional Instructions: Drink plenty of fluids. Make sure you are eating well. Minimize the amount of narcotic pain medicine you are taking. Take your other medications as prescribed. Call your s3b multi sensor operator office tomorrow to make arrangements for follow-up appointment.
[2024-02-21 15:07] VITALS: TEMP 96.5
--- NOTE | 2024-02-21 15:25 | XRAY ---
Indication: Postoperative pain. Comparison: January 22, 2024 3 view right ankle demonstrates interval talocalcaneal arthrodesis with 2 intact traversing screws. 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 No other bony, articular, or soft tissue abnormalities.
[2024-02-21 15:42] LABS: BASOPHIL % 0.5 % (0.2-1.2); Basophil (Absolute #) 0.04 x10^3/uL (0.01-0.08); Eosinophil % 2.7 % (0.8-7.0); Eosinophil (Absolute #) 0.22 x10^3/uL (0.04-0.54); Hematocrit 41.4 % (40.1-51.0); Hemoglobin 13.6 g/dL (13.7-17.5); IMMATURE GRAN # 0.03 x10^3u/L (0.001-0.031); IMMATURE GRAN % 0.4 % (0.001-0.429); Lymphocytes % 23.5 % (21.8-53.1); Mean Cell Volume 87.2 fL (79.0-92.2); Mean Corpuscular Hemoglobin 28.6 pg (25.7-32.2); Mean Corpuscular Hgb Concent. 32.9 g/dL (32.3-36.5); Mean Platelet Volume 9.8 fL (9.4-12.4); Monocyte (Absolute #) 0.78 x10^3/uL (0.30-0.82); Monocytes % 9.7 % (5.3-12.2); Neutrophil % 63.2 % (34.0-67.9); Platelet Count 319 x10^3/uL (163-337); Red Blood Count 4.75 x10^6/uL (4.63-6.08); Red Cell Distribution Width 13.9 % (11.6-14.4); White Blood Count 8.1 x10^3/uL (4.23-9.07)
[2024-02-21 15:58] LABS: ALBUMIN 4.3 g/dL (3.5-5.0); ALKALINE PHOSPHATASE 95 U/L (38-126); ANION GAP 19.8 MEQ/L (5-15); BLOOD UREA NITROGEN 25 mg/dL (9-20); CHLORIDE 106 mmol/L (98-107); Calcium 9.5 mg/dL (8.4-10.2); Carbon Dioxide 19 mmol/L (22-30); Creatinine 1 0.96 mg/dL (0.66-1.25); EST GLOMERULAR FILTRATION RATE 86.1 ML/MIN; ETHYL ALCOHOL < 10 mg/dL (0-10); Glucose 169 mg/dL (74-106); MAGNESIUM 1.9 mg/dL (1.6-2.3); Potassium 4.3 mmol/L (3.5-5.1); SGOT/AST 37 U/L (17-59); SGPT/ALT 45 U/L (0-50); SODIUM 140 mmol/L (135-145); Total Protein 7.5 g/dL (6.3-8.2)
[2024-02-21] MEDS ORDERED: Sodium Chloride 0.9% 500 ML 500 ML IV ONE (16:07)
[2024-02-21] MEDS: Sodium Chloride 0.9% 500 ML 500 ML IV ONE (16:08)
[2024-02-21 16:33] VITALS: RESP 18
[2024-02-21 16:49] LABS: Appearance Cloudy (Clear); Bacteria None Seen /HPF (None Seen); Bilirubin Negative (Negative); Blood Small (Negative); Epithelial Cells None Seen /HPF (None Seen); Glucose, Urine Negative (Negative); Ketones Trace (Negative); Leukocyte Esterase Negative (Negative); Nitrite Negative (Negative); Protein,Urine Dip 30 (Negative); RBC 0-2 /HPF (0-5); Specific Gravity >=1.030 (1.005-1.030); Urobilinogen 0.2 mg/dL (0.2); WBC 0-2 /HPF (0-5)
--- NOTE | 2024-02-21 16:53 | XRAY ---
Indication: Dizziness. Multiple contiguous axial images obtained through the head without contrast. Comparison: None Normal appearing brain parenchyma, ventricles, bony calvarium for patient's age. Visualized paranasal sinuses and mastoid air cells are clear. Impression: Normal CT head without contrast exam.
[2024-02-21 17:50] VITALS: BP 134/88; PULSE 88; O2SAT 95
== END 2024-02-21 18:04 | disposition home or self-care (01) ==
LOC: ED 14:32
DX: E86.0 Dehydration (principal); R42 Dizziness and giddiness; E78.5 Hyperlipidemia, unspecified; Z79.891 Long term (current) use of opiate analgesic; Z79.899 Other long term (current) drug therapy; Z09 Encounter for follow-up examination after completed treatment for conditions other than malignant neoplasm; Z98.1 Arthrodesis status
CPT/HCPCS: 36000; 36415; 70450; 73610; 80053; 81001; 82077; 83735; 84484; 85025; 93005; 96360; 99284; 99285

== ENCOUNTER 2024-03-13 05:35 | Day surgery (SDC) | payer MEDICARE ==
[2024-03-13] MEDS: Lactated Ringers 1,000 ML IV SCH (06:13)
[2024-03-13] MEDS: celeBREX 100 MG PO ONE (06:13)
[2024-03-13] MEDS: TYLENOL EXTRA STRENGTH 500 MG PO ONE (06:13)
[2024-03-13] MEDS: Decadron 4 MG PO ONE (06:13)
[2024-03-13] MEDS: TRANEXAMIC 1,000 MG/100ML-NACL 1,000 MG/100 ML PIGGYBACK IV ONE (06:14)
[2024-03-13] MEDS: CEFAZOLIN 2 GM/100 ML NaCl 2 GM/100 ML IVPB IV SCH (06:14)
[2024-03-13] MEDS: NEURONTIN PO ONE (06:14)
[2024-03-13 06:45] LABS: Absolute Neutrophil Ct (ANC) 5.11 x10^3/uL (1.78-5.38); BASOPHIL % 0.5 % (0.2-1.2); Basophil (Absolute #) 0.04 x10^3/uL (0.01-0.08); Eosinophil % 3.6 % (0.8-7.0); Eosinophil (Absolute #) 0.29 x10^3/uL (0.04-0.54); Hematocrit 40.5 % (40.1-51.0); Hemoglobin 13.3 g/dL (13.7-17.5); IMMATURE GRAN # 0.03 x10^3u/L (0.001-0.031); IMMATURE GRAN % 0.4 % (0.001-0.429); Lymphocyte (Absolute #) 1.74 x10^3/uL (1.32-3.57); Lymphocytes % 21.6 % (21.8-53.1); Mean Cell Volume 87.5 fL (79.0-92.2); Mean Corpuscular Hemoglobin 28.7 pg (25.7-32.2); Mean Corpuscular Hgb Concent. 32.8 g/dL (32.3-36.5); Mean Platelet Volume 9.1 fL (9.4-12.4); Monocyte (Absolute #) 0.83 x10^3/uL (0.30-0.82); Monocytes % 10.3 % (5.3-12.2); Neutrophil % 63.6 % (34.0-67.9); Platelet Count 235 x10^3/uL (163-337); Red Blood Count 4.63 x10^6/uL (4.63-6.08); Red Cell Distribution Width 13.6 % (11.6-14.4)
[2024-03-13 07:01] LABS: ALBUMIN 4.2 g/dL (3.5-5.0); ANION GAP 14.9 MEQ/L (5-15); BILIRUBIN,TOTAL 0.5 mg/dL (0.2-1.3); Calcium 9.6 mg/dL (8.4-10.2); Creatinine 1 0.68 mg/dL (0.66-1.25); EST GLOMERULAR FILTRATION RATE 101.3 ML/MIN; Potassium 3.9 mmol/L (3.5-5.1); Total Protein 7.2 g/dL (6.3-8.2)
[2024-03-13] MEDS ORDERED: Marcaine Mpf 0.5% Vial 30 Ml ONE (07:20)
[2024-03-13] MEDS ORDERED: EXPAREL 133 MG/10 ML VIAL IJ ONE ×2 (07:20→07:21)
[2024-03-13] MEDS ORDERED: Zofran 4 MG/2 ML VIAL ONE ×2 (07:22→07:50)
[2024-03-13] MEDS ORDERED: Decadron 4 MG INJ ONE (07:22)
[2024-03-13] MEDS ORDERED: DIPRIVAN 200 MG/20 ML IV ONE (07:22)
[2024-03-13] MEDS ORDERED: TORAdol 30 mg Injection ONE (07:22)
[2024-03-13] MEDS ORDERED: ROCURONIUM BROMIDE IV ONE ×2 (07:22→07:48)
[2024-03-13] MEDS ORDERED: BRIDION 200MG/2ML IV ONE ×2 (07:22→07:50)
[2024-03-13] MEDS ORDERED: Xylocaine-Mpf 2% 5 Ml Vial ONE (07:22)
[2024-03-13] MEDS ORDERED: Versed 2 MG/2 ML Injection ONE (07:22)
[2024-03-13] MEDS ORDERED: SUBLIMAZE 100 MCG/2 ML ONE ×2 (07:22→09:59)
[2024-03-13] MEDS ORDERED: PHENYLEPHRINE HCL ONE (08:23)
[2024-03-13] MEDS ORDERED: Ephedrine Sulfate 50 MG/ML ONE (08:40)
[2024-03-13] MEDS ORDERED: PEROXIDE 3% ONE (11:44)
[2024-03-13 12:00] LABS: Appearance Clear (Clear); Bacteria None Seen /HPF (None Seen); Bilirubin Negative (Negative); Blood Small (Negative); Epithelial Cells None Seen /HPF (None Seen); Glucose, Urine Negative (Negative); Ketones Negative (Negative); Leukocyte Esterase Negative (Negative); Nitrite Negative (Negative); Protein,Urine Dip Negative (Negative); RBC 0-2 /HPF (0-5); Urobilinogen 0.2 mg/dL (0.2); WBC 0-2 /HPF (0-5)
--- NOTE | 2024-03-13 12:06 | XRAY ---
Indication: Right total ankle replacement. Hardware removal. Fibula osteotomy/repair. Gastrocnemius recession. Intraoperative fluoroscopy was provided for 4 minutes 56 seconds. 24 digital spot images submitted for interpretation ultimately demonstrates total ankle arthroplasty with intact prosthesis. Also new osteotomy distal fibula with lateral fixation plate/screws. Correlate with intraoperative findings/report.
[2024-03-13 14:02] VITALS: RESP 18
[2024-03-13 14:18] VITALS: BP 99/69; PULSE 86; TEMP 97.5; O2SAT 95
--- NOTE | 2024-03-13 15:20 | XRAY ---
Four minutes and 56 seconds of fluoroscopy was used in surgery for a right total ankle replacement. Hardware removal. Fibula osteotomy/repair. Gastrocnemius recession.
--- NOTE | 2024-03-14 19:13 | OP ---
SURGERY DATE/TIME: 03/13/2024 [id number] PREOPERATIVE DIAGNOSES: 1) Right ankle pain. 2) Right subtalar joint osteoarthritis. 3) Retained hardware right foot. 4) Osteoarthritis of ankle joint. 5) Tendon and gastrocsoleus equinus, lateral ankle instability. POSTOPERATIVE DIAGNOSES: 1) Right ankle pain. 2) Right subtalar joint osteoarthritis. 3) Retained hardware right foot. 4) Osteoarthritis of ankle joint. 5) Tendon and gastrocsoleus equinus, lateral ankle instability. PROCEDURES: 1) Removal of hardware. 2) Fibular osteotomy. 3) Total ankle replacement, Freddy trabecular metal ankle replacement. 4) Repair fibular osteotomy. 5) Tendo-Achilles lengthening. 6) Lateral ankle stabilization. SURGEON: Apollo Villegas DPM ASSISTANTS: 1) Kalli Heredia, Surgical Street Light Lamp Cleaner. 2) Sonali Hicks, Student Surgical [employer] Light Lamp Cleaner. HEMOSTASIS: Thigh tourniquet set to 300 mmHg for 120 total tourniquet minutes. ANESTHESIA: General, plus a regional block prior to procedure, popliteal and saphenous. See anesthesia report for details. ESTIMATED BLOOD LOSS: Approximately 20 mL. MATERIALS: Freddy trabecular metal ankle replacement size 4 for the tibia and the talus with a size 0 poly and a 4 hole anatomic fibular fracture plate right, 4-0 Monocryl, 3-0 nylon. INJECTABLES: See anesthesia report for details. INDICATIONS: The patient is a very pleasant 68-year-old male, very well known to my service, previously having a fusion of his subtalar joint 4 weeks ago. At this time, we have planned for a staged procedure in which we allow for 4 weeks of nonweightbearing, allowing the subtalar joint some time to get a head start in order to proceed with the total ankle replacement now and, in 2 weeks' time, the patient may become weightbearing. Patient understands all risks that are associated with this procedure. Patient was seen in followup and is healing well at the level of the subtalar joint and incisions are healed at this time. At this time, all risks, benefits, and complications were discussed with the patient including but not limited to infection, hematoma, seroma, possibility of delayed wound healing, non-wound healing, delayed bone healing and nonunion, painful retained hardware, failure of surgical intervention, and possible need for further surgical intervention at a later date. No guarantees were provided as to the outcome of surgical intervention. It was at this time we decided to proceed. DESCRIPTION OF PROCEDURE AND FINDINGS: Patient was brought into the PACU prior to the procedure and provided a popliteal and saphenous block. Following the block, patient was brought into the operating room and placed on the operating table in the supine position. General anesthesia was administered until the patient was adequately sedated. The right upper thigh had a well-padded tourniquet applied to the right thigh and the tourniquet was set to 300 mmHg. At this time, the right lower extremity was prepped and draped in the typical sterile fashion and lowered onto the surgical field. At this time, attention was directed, under fluoroscopic guidance, to the more proximal of the 2 subtalar joint screws. Utilizing a K-wire, the cannulated screw was identified on fluoroscopic view and was removed. From that standpoint, the distal screw was identified to be out of the way of the implant and was decided to be retained in that site. Following this, attention then was directed to the lateral aspect of the fibula where, under fluoroscopic guidance, planning was made out. From that standpoint, the Esmarch was inflated, tourniquet was inflated to 300 mmHg, and at this time a linear incision was made at the distal tip of the fibula and went approximately 8 cm proximal. This was performed utilizing a 10 blade down to the level of the fibula, being careful not to damage any neurovascular structures. Once identified, the fibula was dissected. The ATFL was disconnected. CFL and PTFL as well as superior peroneal retinaculum were left intact. From that standpoint, an osteotomy was made with an orientation of approximately 3.5 cm from the physeal scar ending in a 45 degree angle from a superior to inferior orientation going from lateral to medial. Once this cut was made, the syndesmosis was and the fibula was flapped inferiorly and posteriorly to gain access to the tibiotalar joint. At this time, a significant amount of osteophytes were identified at the anterior aspect over the AITFL ligament and this was planed utilizing a rongeur. Once this was performed, the posterior and anterior gutters of the ankle joint were identified and resected, gaining adequate visualization of both sides, making sure to protect neurovascular bundles along the way. At this time, the frame was introduced. Once the frame was introduced, we used landmarks to identify that the leg was level relative to the frame, which was carried out utilizing the footrest as well as the calf rest, which an additional calf rest was utilized to level the longitudinal axis of the tibia parallel with the bars of the frame in a parallel orientation. From that standpoint, once this was achieved, calcaneal transfixation pin was placed. This transfixation pin was placed parallel to the bed as well as the footplate. Once this was achieved the footplate was then secured utilizing the clamps to the footplate. Following this, a half pin was placed within the talar neck to control for talar rotation. Once this was accomplished, a slight bit of internal rotation was applied to the talus and then this was locked into the frame. Following this, lateral views demonstrated a little bit of posterior sag of the tibia relative to the talus. Decision was made to proceed with an anterior pin. This pin was utilized to pull the tibia anterior relative to the talus. Once this was performed, this was locked into this position and then an additional pin was placed from an anteromedial orientation into the tibia to secure the frame. All of these sites were locked down. This was checked at the mechanical axis, assessing the patient's knee, which appeared to line up with the central aspect of the tibial plateau which is the patient's mechanical axis. Once this was achieved, the cut guide was placed for a size 4, which was determined at the beginning of the case utilizing a measure. The size 4 cut block was introduced and placed in the unlocked position. The guide was placed to get the position slot in line with the apex of the talar dome and the joint line. Once sufficient positioning was performed, decision was made to proceed with the cut. We started in a position slot which is not traditional in order to gain access to get a little bit more of talar rotation. Once this was performed, we were able to get a slight bit of talar rotation from a varus to a slightly neutral position. Once this was performed, talus 1 and tibia 1 were cut down and then tibia 2 position was cut down utilizing the drill, making way for the implant. The rail guides were then introduced and deemed to be in an adequate position. The pins were then secured once the positioning was determined to be adequate. Once this was performed, then the rail guides were placed. The trial was placed, seemingly having a very good fit, although very tight posteriorly, which at that time decision was made to proceed with a Tendo-Achilles lengthening after placing the implant. From that standpoint, the talar component was removed from the sample, the trial, and the talar implant was placed. Following this, the tibial side was then removed and the tibial component with a 0 poly was then placed in its deficit and then gently malleted into position. Fluoroscopic images were taken demonstrating significant appropriate position in the AP and the lateral view as well as mortise view. From that standpoint, copious amounts of sterile saline were utilized to flush the surgical site. The fibula was then repaired utilizing a 4 hole anatomic plate with a combination of locking and unlocking screws with a lag technique through the fibular fracture through the plate. Once this was performed, position was assessed. Patient was in significant equinus with the knee bent as well as extended and decision was made to go forward. The Tendo-Achilles lengthening occurred utilizing an 11 blade at 3, 5, and 8 cm from the insertion of the Achilles tendon going from central to medial, central to lateral, and then central to medial orientation respectively at these sites. Once this was performed, a significant amount of dorsiflexion was demonstrated without rupture of the Achilles tendon. From that standpoint, attention was directed on the lateral view and an anterior drawer was performed. Once this was determined to show some lateral ankle instability, the ATFL ligament was repaired utilizing 2-0 Vicryl in a Brostrom-type procedure. From that standpoint, copious amounts of sterile saline were utilized to flush the surgical site. All surgical sites were cleansed and closed utilizing 4-0 Monocryl and 3-0 nylon in a simple interrupted buried-type fashion as well as horizontal mattress-type fashion for skin closure. A dressing consisting of Betadine, Adaptic, 4 x 4, Kerlix, ABD, and a well-padded posterior splint with sugar tong was applied to the patient's right lower extremity with the foot orthogonal relative the to longitudinal axis of the leg. Patient was then reversed from anesthesia and returned to the postoperative anesthesia care unit with vital signs stable and vascular status intact. Patient handled the anesthesia, as well as the procedure, without significant complication. Postoperative orders as indicated in the patient's discharge chart.
== END 2024-03-13 14:37 | disposition home or self-care (01) ==
LOC: SDC 05:35
PROVIDERS: ATTEND Podiatrist Foot & Ankle Surgery
DX: M19.071 Primary osteoarthritis, right ankle and foot (principal); M25.571 Pain in right ankle and joints of right foot; T84.84XA Pain due to internal orthopedic prosthetic devices, implants and grafts, initial encounter; M21.961 Unspecified acquired deformity of right lower leg; Z79.899 Other long term (current) drug therapy
CPT/HCPCS: 01480; 01484; 20680; 27685; 27698; 27702; 27707; 36415; 64447; 64450; 73610; 76000; 76942; 80053; 81001; 85025; 87086; 93005; C1713; C1776; J0690; J1100; J1885; J2250; J2371; J2405; J2704; J3010; A9270-GY

== ENCOUNTER 2024-03-14 13:14 | Emergency (ER) | payer MEDICARE ==
--- NOTE | 2024-03-14 13:21 | ERPHSYRPT ---
- History of Present Illness Time Seen by Provider: 03/14/24 13:20 Source: patient, family Exam Limitations: no limitations Physician History: This is a thin 68-year-old white male patient who presents to the emergency department accompanied by his daughter for postoperative wound check. The patient underwent a complex right foot and ankle procedure yesterday by Dr. Bustillos, our in-house mortgage loan closer. The patient and the patient's family were concerned because of the bloody drainage present on the bandages. Patient arrives to the emergency department hemodynamically stable. He last took a hydrocodone tablet at 1030 this morning. He is still having significant, expected postoperative pain. Timing/Duration: today Quality: painful Severity: mild, moderate Associated Symptoms: denies symptoms Allergies/Adverse Reactions: erythromycin base Allergy (Verified 03/14/24 13:16) Home Medications: Atorvastatin Calcium [Lipitor 20MG Tablet] 20 mg PO DAILY 10/14/15 [History] Fenofibrate,Micronized 145 mg* [Tricor 145 MG] 48 mg PO DAILY 10/14/15 [History] Hydrocodone/APAP 10/325 mg [Codorus 10/325 MG TableT] 1 tab PO Q6H PRN PRN 10/14/15 [History] Albuterol 2.5 mg/3 ml Neb [Proventil 2.5 mg/3 ml Neb] 2.5 mg NEB UD 02/01/24 [History] Albuterol Sulfate [Albuterol Sulfate Hfa] 8.5 gm IH Q6HPRN PRN 03/13/24 [History] Apixaban [Eliquis] 2.5 mg PO BID 03/14/24 [History] Oxycodone HCl/Acetaminophen [Oxycodone-Acetaminophn 7.5-325] 1 each PO Q6HPRN PRN 03/14/24 [History] Hx Tetanus, Diphtheria Vaccination/Date Given: No Hx Influenza Vaccination/Date Given: No Hx Pneumococcal Vaccination/Date Given: Yes Travel Risk - International Travel Have you traveled outside of the country in past 3 weeks: No - Emerging Infectious Disease Are you exhibiting symptoms associated with any current EIDs: No - Review of Systems Constitutional: No Symptoms Eyes: No Symptoms Ears, Nose, & Throat: No Symptoms Respiratory: No Symptoms Cardiac: No Symptoms Abdominal/Gastrointestinal: No Symptoms Genitourinary Symptoms: No Symptoms Musculoskeletal: No Symptoms Skin: Other (The postoperative dressing that is present in the right lower extremity is soiled with what appears to be old blood.) Neurological: No Symptoms Psychological: No Symptoms Endocrine: No Symptoms Hematologic/Lymphatic: No Symptoms Immunological/Allergic: No Symptoms All Other Systems: Reviewed and Negative - Past Medical History Pertinent Past Medical History: Yes Neurological History: No Pertinent History ENT History: Cataracts Cardiac History: High Cholesterol Respiratory History: COPD Endocrine Medical History: No Pertinent History Musculoskeletal History: No Pertinent History GI Medical History: No Pertinent History History: No Pertinent History Psycho-Social History: No Pertinent History Male Reproductive Disorders: No Pertinent History Other Medical History: "bad back" - Past Surgical History Past Surgical History: Yes Neuro Surgical History: No Pertinent History Cardiac: No Pertinent History Respiratory: No Pertinent History Gastrointestinal: Hernia Repair, Other Genitourinary: No Pertinent History Musculoskeletal: Orthopedic Surgery Male Surgical History: No Pertinent History Other Surgical History: back surgery x3 , hiatal hernia repair, orthopedic suregery for R leg frature with hardware, right ankle surgery - Social History Smoking Status: Former smoker How long have you smoked: 45 years Exposure to second hand smoke: Yes Drug Use: none Patient Lives Alone: No - Social Determinants of Health Will the patient participate in the screening: Yes Do you worry about a steady place to live?: No In the past 12 months,have you had to go without utilities?: No Transportation Issues: No Has anyone in your support network made you feel unsafe?: No Have you or anyone in your house had to go without enough: No - Nursing Vital Signs Nursing Vital Signs: Initial Vital Signs Temperature 97.6 F 03/14/24 13:19 Pulse Rate 92 H 03/14/24 13:19 Respiratory Rate 22 03/14/24 13:19 Blood Pressure 115/70 03/14/24 13:19 O2 Sat by Pulse Oximetry 94 L 03/14/24 13:19 Pain Scale Pain Intensity 10 - Physical Exam General Appearance: no apparent distress, alert, anxiety, thin Eye Exam: PERRL/EOMI, eyes nml inspection Ears, Nose, Throat Exam: normal ENT inspection, moist mucous membranes Neck Exam: normal inspection, non-tender, supple, full range of motion Respiratory Exam: airway intact, No chest tenderness, No respiratory distress Gastrointestinal/Abdomen Exam: No tenderness Rectal Exam: not done Back Exam: normal inspection, normal range of motion, No CVA tenderness, No vertebral tenderness Extremity Exam: tenderness (Right foot and ankle tenderness in a posterior splint and wrapped in postoperative fluffy gauze, Kerlix and Alexander wrap. Although the dressing is soiled, the incision sites are intact without evidence of infection. There is no drainage of any kind present. 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 tested Skin Exam: other (See above wound site description) Lymphatic Exam: No adenopathy SpO2 Interpretation: normal O2 Delivery: Room Air - Course Nursing assessment & vital signs reviewed: Yes Ordered Tests: Medication Summary Generic Name Dose Route Start Last Admin Trade Name Freq PRN Reason Stop Dose Admin Hydromorphone HCl 0.5 mg 03/14/24 14:03 Hydromorphone 1 Mg/1ml Inj IM 03/14/24 14:04 STAT ONE Ondansetron HCl 4 mg 03/14/24 14:03 Zofran 4 Mg/Udtablet Orally Disintegrating PO 03/14/24 14:04 STAT ONE - Progress Progress: improved, pain not gone completely, re-examined Progress Note: 03/14/24 14:08 My medical decision making and the assignment of low complexity to this patient's medical issue today is based on review of the patient's past medical history, review the patient's medication list, review of patient drug allergy list, history present illness and physical findings on examination. No radiographic or laboratory studies are necessary in this patient. Typically, when a Dr. Bustillos postoperative patient comes to the emergency department, we contact him directly and he readily comes down to evaluate his patient. However, he was not here today but his nurses came down to take down the wound and followed his instructions per their conversation with him today. After the dressings were taken down by his nursing staff in my presence, the incision lines are intact without evidence of any drainage or infection. The wounds look good. The patient has palpable pedal pulses. They kept the posterior splint and redressed the postoperative site as it was dressed yesterday postoperatively. I provided the patient with an intramuscular injection of Dilaudid and oral Zofran and ODT. Patient will be discharged to home and continue with his postoperative instructions. Counseled pt/family regarding: diagnosis, need for follow-up Medical Desision Making - Independent Historian Additional History obtained from: Family - Diagnostic Testing Diagnostic test were ordered, analyzed, and reviewed by me: No - Risk of complications Low Risk: Low risk of morbidity from additional dx testing or treatment - Departure Departure Disposition: Home Clinical Impression: Encounter for postoperative wound check Condition: Stable Critical Care Time: No Referrals: SANDOR WALKER MD [Primary Care Provider] - Follow up/PCP as directed Additional Instructions: Continue your postoperative instructions. Keep your follow-up appointment as instructed by your mortgage loan closer.
[2024-03-14 13:37] VITALS: TEMP 97.6
[2024-03-14] MEDS ORDERED: ZOFRAN ODT 4 MG ONE (14:12)
[2024-03-14] MEDS ORDERED: Hydromorphone 1 mg/ml Injection ONE (14:12)
[2024-03-14] MEDS: Hydromorphone 1 mg/ml Injection IM ONE (14:15)
[2024-03-14] MEDS: ZOFRAN ODT 4 MG PO ONE (14:16)
[2024-03-14 14:19] VITALS: BP 110/65; PULSE 90; RESP 17; O2SAT 91
== END 2024-03-14 14:25 | disposition home or self-care (01) ==
LOC: ED 13:14
DX: Z48.01 Encounter for change or removal of surgical wound dressing (principal); Z79.891 Long term (current) use of opiate analgesic; Z79.899 Other long term (current) drug therapy
CPT/HCPCS: 96372; 99283; J1171; Q0162

== ENCOUNTER 2024-03-20 14:02 | Emergency (ER) | payer MEDICARE ==
[2024-03-20 14:19] VITALS: RESP 14; TEMP 97.5
--- NOTE | 2024-03-20 15:22 | XRAY ---
CLINICAL HISTORY: dizziness COMPARISON: none. TECHNIQUE: An axial non-contrast CT scan of the brain was performed from the skull base to the high parietal region. One of the following dose-reduction techniques was utilized for this exam. Automated exposure control, adjustment of the mA and/or kV according to patient size, and use of iterative reconstruction. FINDINGS: Brain Parenchyma: Normal attenuation of the cerebral hemispheres, cerebellum, and brainstem. No evidence of acute infarct, hemorrhage, or mass effect. No abnormal areas of hypo- or hyperattenuation. Ventricular System: Ventricles are normal in size and configuration. No evidence of hydrocephalus or ventricular enlargement. Subarachnoid Spaces: The cortical sulci, cerebellar folia, and basal cisterns are prominent and consistent with senile changes. No evidence of subarachnoid hemorrhage or extra-axial fluid collections. Cerebellum and Brainstem: Prominent cerebellar folia. Normal size and density.No masses, or lesions. Orbits: Normal appearance of the globes, optic nerves, and extraocular muscles. No evidence of orbital masses. Sinuses: Mild polypoidal mucosal thickening of the left maxillary sinus. Mastoid Air Cells: Clear mastoid air cells. No evidence of mastoiditis. Skull and Meninges: Normal skull morphology. IMPRESSION: 1. No acute intracranial abnormality. 2. Senile related mild atrophic changes. 3. Early changes of a stroke may not be detected on a CT scan. If there is strong clinical suspicion of stroke, further MRI with diffusion-weighted imaging is recommended. Electronically Signed by: Leida Nguyen MD. (03/20/2024 15:17:40 EST)
[2024-03-20 15:32] LABS: Absolute Neutrophil Ct (ANC) 7.28 x10^3/uL (1.78-5.38); BASOPHIL % 0.4 % (0.2-1.2); Basophil (Absolute #) 0.04 x10^3/uL (0.01-0.08); Eosinophil % 2.3 % (0.8-7.0); Eosinophil (Absolute #) 0.22 x10^3/uL (0.04-0.54); Hemoglobin 11.6 g/dL (13.7-17.5); IMMATURE GRAN # 0.06 x10^3u/L (0.001-0.031); IMMATURE GRAN % 0.6 % (0.001-0.429); Lymphocyte (Absolute #) 1.42 x10^3/uL (1.32-3.57); Lymphocytes % 14.6 % (21.8-53.1); Mean Cell Volume 89.1 fL (79.0-92.2); Mean Corpuscular Hemoglobin 28.7 pg (25.7-32.2); Mean Corpuscular Hgb Concent. 32.2 g/dL (32.3-36.5); Mean Platelet Volume 9.2 fL (9.4-12.4); Monocyte (Absolute #) 0.73 x10^3/uL (0.30-0.82); Monocytes % 7.5 % (5.3-12.2); Neutrophil % 74.6 % (34.0-67.9); Platelet Count 316 x10^3/uL (163-337); Red Blood Count 4.04 x10^6/uL (4.63-6.08); Red Cell Distribution Width 13.3 % (11.6-14.4); White Blood Count 9.8 x10^3/uL (4.23-9.07)
[2024-03-20] MEDS ORDERED: Sodium Chloride 0.9% 1000 ML 1,000 ML ONE (15:45)
[2024-03-20] MEDS: Sodium Chloride 0.9% 1000 ML 1,000 ML IV SCH (15:46)
[2024-03-20 15:57] LABS: ALBUMIN 4.1 g/dL (3.5-5.0); ALKALINE PHOSPHATASE 88 U/L (38-126); ANION GAP 11.8 MEQ/L (5-15); BLOOD UREA NITROGEN 21 mg/dL (9-20); CHLORIDE 105 mmol/L (98-107); Calcium 9.7 mg/dL (8.4-10.2); Carbon Dioxide 26 mmol/L (22-30); Creatinine 1 0.98 mg/dL (0.66-1.25); Glucose 160 mg/dL (74-106); NT PRO BNPII 32.9 pg/mL (<300); Potassium 4.2 mmol/L (3.5-5.1); SGOT/AST 33 U/L (17-59); SGPT/ALT 36 U/L (0-50); SODIUM 138 mmol/L (135-145); TROPONIN < 0.012 ng/mL (0.000-0.033); Total Protein 7.2 g/dL (6.3-8.2)
--- NOTE | 2024-03-20 16:28 | ERPHSYRPT ---
- History of Present Illness Time Seen by Provider: 03/20/24 14:20 Source: patient Exam Limitations: no limitations Patient Subjective Stated Complaint: pt was at the ortho clinic and had a cast removed from his right foot/leg due to having an ankle replacement and pt became very dizzy Triage Nursing Assessment: Pt brought to the ER by a friend after being at the Ortho Clinic, hypotensive, rates foot pain as 7/10, pulses normal, skin sallow/w/d, right foot purple and swollen, no difficulty breathing, doesn't appear to be in any distress Physician History: 68-year-old male presents to our emergency department for evaluation of dizziness/near syncope. Patient had an ankle replacement last week. Patient had a cast removed today in the podiatry clinic. Patient looked at his foot and became dizzy. No syncope. Patient has had a vasovagal episode in the past. Patient believes today symptoms are similar. No associated chest pain or shortness of breath. No nausea vomiting or diaphoresis. Symptoms were trans ient. Upon arrival to our ED symptoms had improved however patient's blood pressure was low in the 90s. However blood pressure normalized shortly after arrival. Patient currently asymptomatic. Family friend at bedside. They voiced no other complaints or concerns at this time. Portions of this note were created with voice recognition technology. There may be grammatical, spelling, punctuation or sound alike errors Timing/Duration: today Severity: moderate Modifying Factors: Improves With: nothing Associated Symptoms: denies symptoms Allergies/Adverse Reactions: erythromycin base Allergy (Verified 03/20/24 14:19) Home Medications: Atorvastatin Calcium [Lipitor 20MG Tablet] 20 mg PO DAILY 10/14/15 [History] Fenofibrate,Micronized 145 mg* [Tricor 145 MG] 48 mg PO DAILY 10/14/15 [History] Hydrocodone/APAP 10/325 mg [Outlook 10/325 MG TableT] 1 tab PO Q6H PRN PRN 10/14/15 [History] Albuterol 2.5 mg/3 ml Neb [Proventil 2.5 mg/3 ml Neb] 2.5 mg NEB UD 02/01/24 [History] Albuterol Sulfate [Albuterol Sulfate Hfa] 8.5 gm IH Q6HPRN PRN 03/13/24 [History] Apixaban [Eliquis] 2.5 mg PO BID 03/14/24 [History] Oxycodone HCl/Acetaminophen [Oxycodone-Acetaminophn 7.5-325] 1 each PO Q6HPRN PRN 03/14/24 [History] Hx Tetanus, Diphtheria Vaccination/Date Given: No Hx Influenza Vaccination/Date Given: No Hx Pneumococcal Vaccination/Date Given: Yes Travel Risk - International Travel Have you traveled outside of the country in past 3 weeks: No - Emerging Infectious Disease Are you exhibiting symptoms associated with any current EIDs: No - Review of Systems Constitutional: No Symptoms, No Fever, No Chills Eyes: No Symptoms Ears, Nose, & Throat: No Symptoms Respiratory: No Symptoms, No Cough, No Dyspnea Cardiac: No Symptoms, No Chest Pain, No Edema, No Syncope Abdominal/Gastrointestinal: No Symptoms, No Abdominal Pain, No Nausea, No Vomiting, No Diarrhea Genitourinary Symptoms: No Symptoms, No Dysuria Musculoskeletal: No Symptoms, No Back Pain, No Neck Pain Skin: No Symptoms, No Rash Neurological: No Symptoms, No Dizziness, No Focal Weakness, No Sensory Changes Psychological: No Symptoms Endocrine: No Symptoms Hematologic/Lymphatic: No Symptoms Immunological/Allergic: No Symptoms All Other Systems: Reviewed and Negative - Past Medical History Pertinent Past Medical History: Yes Neurological History: No Pertinent History ENT History: Cataracts Cardiac History: High Cholesterol Respiratory History: COPD Endocrine Medical History: No Pertinent History Musculoskeletal History: No Pertinent History GI Medical History: No Pertinent History History: No Pertinent History Psycho-Social History: No Pertinent History Male Reproductive Disorders: No Pertinent History Other Medical History: "bad back" - Past Surgical History Past Surgical History: Yes Neuro Surgical History: No Pertinent History Cardiac: No Pertinent History Respiratory: No Pertinent History Gastrointestinal: Hernia Repair, Other Genitourinary: No Pertinent History Musculoskeletal: Joint Replacement, Orthopedic Surgery Male Surgical History: No Pertinent History Other Surgical History: back surgery x3 , hiatal hernia repair, orthopedic suregery for R leg frature with hardware, right ankle surgery, rt ankle r eplacement - Social History Smoking Status: Former smoker How long have you smoked: 45 years Exposure to second hand smoke: Yes Drug Use: none Patient Lives Alone: No - Social Determinants of Health Will the patient participate in the screening: Yes Do you worry about a steady place to live?: No Do you have any problems with any of the following?: No known problems In the past 12 months,have you had to go without utilities?: No Transportation Issues: No Has anyone in your support network made you feel unsafe?: No Have you or anyone in your house had to go without enough: No - Nursing Vital Signs Nursing Vital Signs: Initial Vital Signs Temperature 97.5 F 03/20/24 14:10 Pulse Rate 94 H 03/20/24 14:10 Respiratory Rate 14 03/20/24 14:10 Blood Pressure 89/65 03/20/24 14:10 O2 Sat by Pulse Oximetry 96 03/20/24 14:10 Pain Scale Pain Intensity 7 - Physical Exam General Appearance: no apparent distress, alert Eye Exam: PERRL/EOMI, eyes nml inspection Ears, Nose, Throat Exam: normal ENT inspection, moist mucous membranes Neck Exam: normal inspection, non-tender, supple, full range of motion Respiratory Exam: normal breath sounds, lungs clear, airway intact, No respiratory distress Cardiovascular Exam: regular rate/rhythm, normal heart sounds, normal peripheral pulses Gastrointestinal/Abdomen Exam: soft, normal bowel sounds, No tenderness, No mass Back Exam: normal inspection, normal range of motion, No CVA tenderness, No vertebral tenderness Extremity Exam: normal inspection, normal range of motion, pelvis stable, other (Positive Homans' sign right lower extremity) Neurologic Exam: alert, oriented x 3, cooperative, normal mood/affect, sensation nml, No motor deficits Skin Exam: normal color, warm, dry, No rash Lymphatic Exam: No adenopathy SpO2 Interpretation: normal SpO2: 97 O2 Delivery: Room Air - Course Nursing assessment & vital signs reviewed: Yes EKG Interpreted by Me: RATE (84), Sinus Rhythm, NORMAL AXIS, NORMAL INTERVALS, NORMAL QRS - CT Exams Head CT Interpretation: Tele-radiologist Report (No acute intracranial pathology) - Radiology Ultrasound Exam Venous Lower Extremity Ultrasound: discussed w/radiologist (Per truck chauffeur right lower extremity negative for DVT) Ordered Tests: Active Orders 24 hr Category Date Time Status AMA [Release AMA] OM.NOW Care 03/20/24 18:26 Ordered Suggestion Clerk STAT Care 03/20/24 14:45 Active EKG-ER Only STAT Care 03/20/24 14:45 Active IV Insertion STAT Care 03/20/24 14:45 Active Pulse Oximetry (ED) STAT Care 03/20/24 14:45 Active HEAD WITHOUT CONTRAST [CT] Stat Exams 03/20/24 14:50 Completed VENOUS UNILAT/LIMITED EXTREMIT [US] Stat Exams 03/20/24 15:27 Taken CBC W DIFF Stat Lab 03/20/24 15:25 Completed CMP Stat Lab 03/20/24 15:25 Completed NT PRO BNPII Stat Lab 03/20/24 15:25 Completed TROPONIN Q4H Lab 03/20/24 15:25 Completed TROPONIN Q4H Lab 03/20/24 17:30 Completed TROPONIN Q4H Lab 03/20/24 22:45 Ordered UA W/RFX UR CULTURE Stat Lab 03/20/24 16:46 Completed Medication Summary Generic Name Dose Route Start Last Admin Trade Name Freq PRN Reason Stop Dose Admin Sodium Chloride 1,000 mls @ 100 mls/hr 03/20/24 14:45 03/20/24 15:46 Sodium Chloride 0.9% 1000 Ml IV 04/19/24 14:44 100 mls/hr .Q10H FABIO Administration Lab/Rad Data: Laboratory Result Diagrams 03/20/24 15:25 03/20/24 15:25 Laboratory Results 03/20/24 03/20/24 03/20/24 Range/Units 17:30 16:46 15:25 WBC (4.23-9.07) x10^3/uL RBC (4.63-6.08) x10^6/uL Hgb (13.7-17.5) g/dL Hct (40.1-51.0) % MCV (79.0-92.2) fL MCH (25.7-32.2) pg MCHC (32.3-36.5) g/dL RDW (11.6-14.4) % Plt Count (163-337) x10^3/uL MPV (9.4-12.4) fL Gran % (34.0-67.9) % Immature Gran % (Auto) (0.001-0.429) % Nucleat RBC Rel Count (0.00-0.2) % Eos # (Auto) (0.04-0.54) x10^3/uL Immature Gran # (Auto) (0.001-0.031) x10^3u/L Absolute Lymphs (auto) (1.32-3.57) x10^3/uL Absolute Monos (auto) (0.30-0.82) x10^3/uL Absolute Nucleated RBC (0.00-0.012) x10^3u/L Lymphocytes % (21.8-53.1) % Monocytes % (5.3-12.2) % Eosinophils % (0.8-7.0) % Basophils % (0.2-1.2) % Absolute Granulocytes (1.78-5.38) x10^3/uL Basophils # (0.01-0.08) x10^3/uL Sodium 138 (135-145) mmol/L Potassium 4.2 (3.5-5.1) mmol/L Chloride 105 (98-107) mmol/L Carbon Dioxide 26 (22-30) mmol/L Anion Gap 11.8 (5-15) MEQ/L BUN 21 H (9-20) mg/dL Creatinine 0.98 (0.66-1.25) mg/dL Estimated GFR 84.0 ML/MIN Glucose 160 H (74-106) mg/dL Calcium 9.7 (8.4-10.2) mg/dL Total Bilirubin 0.40 (0.2-1.3) mg/dL AST 33 (17-59) U/L ALT 36 (0-50) U/L Alkaline Phosphatase 88 (38-126) U/L Troponin I < 0.012 < 0.012 (0.000-0.033) ng/mL NT-Pro-B Natriuret Pep 32.9 (<300) pg/mL Serum Total Protein 7.2 (6.3-8.2) g/dL Albumin 4.1 (3.5-5.0) g/dL Urine Color Dark Yellow (Yellow) Urine Appearance Cloudy A (Clear) Urine pH 5.0 (4.6-8.0) Ur Specific [place] >=1.030 A (1.005-1.030) Urine Protein 30 (Negative) Urine Glucose (UA) Negative (Negative) mg/dL Urine Ketones Trace A (Negative) Urine Blood NHT (Negative) Urine Nitrite Negative (Negative) Urine Bilirubin Negative (Negative) Urine Urobilinogen 1.0 A (0.2) mg/dL Ur Leukocyte Esterase Negative (Negative) U Hyaline Cast (Auto) 3-5 A (0-2) /LPF Urine Microscopic RBC 0-2 (0-5) /HPF Urine Microscopic WBC 0-2 (0-5) /HPF Ur Epithelial Cells Few (None Seen) /HPF Calcium Oxalate Crystal 26-50 A (None Seen) /HPF Urine Bacteria Rare A (None Seen) /HPF Urine Culture Reflexed NO (NO) 03/20/24 Range/Units 15:25 WBC 9.8 H (4.23-9.07) x10^3/uL RBC 4.04 L (4.63-6.08) x10^6/uL Hgb 11.6 L (13.7-17.5) g/dL Hct 36.0 L (40.1-51.0) % MCV 89.1 (79.0-92.2) fL MCH 28.7 (25.7-32.2) pg MCHC 32.2 L (32.3-36.5) g/dL RDW 13.3 (11.6-14.4) % Plt Count 316 (163-337) x10^3/uL MPV 9.2 L (9.4-12.4) fL Gran % 74.6 H (34.0-67.9) % Immature Gran % (Auto) 0.6 H (0.001-0.429) % Nucleat RBC Rel Count 0.0 (0.00-0.2) % Eos # (Auto) 0.22 (0.04-0.54) x10^3/uL Immature Gran # (Auto) 0.06 H (0.001-0.031) x10^3u/L Absolute Lymphs (auto) 1.42 (1.32-3.57) x10^3/uL Absolute Monos (auto) 0.73 (0.30-0.82) x10^3/uL Absolute Nucleated RBC 0.00 (0.00-0.012) x10^3u/L Lymphocytes % 14.6 L (21.8-53.1) % Monocytes % 7.5 (5.3-12.2) % Eosinophils % 2.3 (0.8-7.0) % Basophils % 0.4 (0.2-1.2) % Absolute Granulocytes 7.28 H (1.78-5.38) x10^3/uL Basophils # 0.04 (0.01-0.08) x10^3/uL Sodium (135-145) mmol/L Potassium (3.5-5.1) mmol/L Chloride (98-107) mmol/L Carbon Dioxide (22-30) mmol/L Anion Gap (5-15) MEQ/L BUN (9-20) mg/dL Creatinine (0.66-1.25) mg/dL Estimated GFR ML/MIN Glucose (74-106) mg/dL Calcium (8.4-10.2) mg/dL Total Bilirubin (0.2-1.3) mg/dL AST (17-59) U/L ALT (0-50) U/L Alkaline Phosphatase (38-126) U/L Troponin I (0.000-0.033) ng/mL NT-Pro-B Natriuret Pep (<300) pg/mL Serum Total Protein (6.3-8.2) g/dL Albumin (3.5-5.0) g/dL Urine Color (Yellow) Urine Appearance (Clear) Urine pH (4.6-8.0) Ur Specific [place] (1.005-1.030) Urine Protein (Negative) Urine Glucose (UA) (Negative) mg/dL Urine Ketones (Negative) Urine Blood (Negative) Urine Nitrite (Negative) Urine Bilirubin (Negative) Urine Urobilinogen (0.2) mg/dL Ur Leukocyte Esterase (Negative) U Hyaline Cast (Auto) (0-2) /LPF Urine Microscopic RBC (0-5) /HPF Urine Microscopic WBC (0-5) /HPF Ur Epithelial Cells (None Seen) /HPF Calcium Oxalate Crystal (None Seen) /HPF Urine Bacteria (None Seen) /HPF Urine Culture Reflexed (NO) - Progress Progress: improved Progress Note: 68-year-old male presents to our ED for evaluation of near syncopal episode. Tyrell trujillo experiencing dizziness as well. Upon arrival patient was hypotensive with a blood pressure in the 90s. However patient's dizziness and symptoms had resolved. IV fluids initiated. Workup reveals dehydration. Elevated BUN/creatinine ratio 20. Elevated urine specific gravity. No urinary tract infection. Patient reassessed he continues to feel well. Initial troponin negative. CT head negative for acute intracranial pathology. Troponin #2 pending. However patient states that he was tired of waiting. Patient decided he wants to go home and eat. We offered food here however patient prefers to eat at home. We will discharge patient AMA upon request. Patient is of sound mind. Patient is appropriate to make informed and independent medical decisions. Patient understands that leaving AGAINST MEDICAL ADVICE can result in delayed diagnosis, increased risk of morbidity, mortality, short and long-term disability including . In spite of these risks, patient has decided to leave AGAINST MEDICAL ADVICE. Patient understands that he may return to our ED at any point if he reconsiders. Patient agrees to follow-up with his primary care doctor within 48 hours for reevaluation. Patient voices no other complaints or concerns at this time. We will release patient AGAINST MEDICAL ADVICE per their request. Complexity of problem addressed is moderate acute complicated no critical care time. Complexity data reviewed and analyzed is sensitive. Test ordered chest reviewed results analyzed and correlated clinically with history and physical exam. Management discussed with patient's cardiac cath rn at approximately 3:20 PM. Edi Consultant advised ultrasound right lower extremity to rule out DVT as patient has been experiencing pain at the right lower extremity. Risk of complication and or risk of morbidity/mortality of patient management is low. Vital stable. Time spent to discharge patient is approximately 10 minutes. No social determinants of health present to impede follow-up. Portions of this note were created with voice recognition technology. There may be grammatical, spelling, punctuation or sound alike errors 03/20/24 18:30 03/20/24 18:33 Counseled pt/family regarding: lab results, diagnosis, need for follow-up, rad results - Departure Departure Disposition: Home Clinical Impression: Dizziness, Near syncope, Dehydration Condition: Stable Critical Care Time: No Referrals: SANDOR WALKER MD [Primary Care Provider] - Follow up/PCP as directed Additional Instructions: Discharge/Care Plan MORELIA RENTERIA was seen on 03/20/24 in the Emergency Room. The patient was counseled regarding Diagnosis,Lab results, Imaging studies, need for follow up and when to return to the Emergency Room. Prescriptions given: Discharge Note I have spoken with the patient and/or caregivers. I have explained the patient's condition, diagnosis and treatment plan based on the information available to me at this time. I have answered the patient's and/or caregiver's questions and addressed any concerns. The patient and/or caregivers have as good understanding of the patient's diagnosis, condition and treatment plan as can be expected at this point. The vital signs have been stable. The patient's condition is stable and appropriate for discharge from the emergency department. The patient will pursue further outpatient evaluation with the primary care physician or other designated or consulting physician as outlined in the discharge instructions. The patient and/or caregivers are agreeable to this plan of care and follow-up instructions have been explained in detail. The patient and/or caregivers have received these instruction. The patient/and or caregivers are aware that any significant change in condition or worsening of symptoms should prompt an immediate return to this or the closest emergency department or call 911.
[2024-03-20 17:52] VITALS: O2SAT 97
[2024-03-20 18:12] LABS: Appearance Cloudy (Clear); Bilirubin Negative (Negative); Blood NHT (Negative); Glucose, Urine Negative (Negative); Ketones Trace (Negative); Leukocyte Esterase Negative (Negative); Nitrite Negative (Negative); Protein,Urine Dip 30 (Negative); RBC 0-2 /HPF (0-5); Specific Gravity >=1.030 (1.005-1.030); WBC 0-2 /HPF (0-5)
[2024-03-20 18:13] LABS: Bacteria Rare /HPF (None Seen); Calcium Oxalate Crystals 26-50 /HPF (None Seen); Epithelial Cells Few /HPF (None Seen)
[2024-03-20 18:36] VITALS: BP 113/73; PULSE 83
--- NOTE | 2024-03-20 19:58 | XRAY ---
Indication: Pain. 2-dimensional sonogram and color Doppler imaging major venous vessels right leg performed. Comparison: February 18, 2024 No thrombus seen in the examined deep venous vessels right leg including greater saphenous vein. Veins demonstrate normal compressibility. Venous waveforms are normal with and without augmentation. Impression: Right leg continues to be negative for DVT. Comment: Preliminary report was given.
== END 2024-03-20 18:36 | disposition left against medical advice (07) ==
LOC: ED 14:02
DX: R42 Dizziness and giddiness (principal); E86.0 Dehydration; R55 Syncope and collapse; Z79.01 Long term (current) use of anticoagulants
CPT/HCPCS: 36415; 70450; 80053; 81001; 83880; 84484; 85025; 93005; 93041; 93971; 94760; 96360; 99284; 99285

== ENCOUNTER 2024-03-22 09:03 | Day surgery (SDC) | payer MEDICARE ==
[2024-03-22] MEDS ORDERED: TYLENOL EXTRA STRENGTH 500 MG ONE (09:22)
[2024-03-22] MEDS ORDERED: CEFAZOLIN 2 GM/100 ML NaCl 2 GM/100 ML IVPB IV ONE (09:22)
[2024-03-22] MEDS ORDERED: Decadron 4 MG ONE (09:22)
[2024-03-22] MEDS ORDERED: Lactated Ringers 1,000 ML IV ONE ×2 (09:23→14:55)
[2024-03-22] MEDS ORDERED: celeBREX 100 MG ONE (09:23)
[2024-03-22] MEDS ORDERED: NEURONTIN ONE (09:23)
[2024-03-22] MEDS: CEFAZOLIN 2 GM/100 ML NaCl 2 GM/100 ML IVPB IV SCH (09:26)
[2024-03-22] MEDS: Lactated Ringers 1,000 ML IV SCH (09:26)
[2024-03-22] MEDS: Decadron 4 MG PO ONE (09:27)
[2024-03-22] MEDS: celeBREX 100 MG PO ONE (09:27)
[2024-03-22] MEDS: TYLENOL EXTRA STRENGTH 500 MG PO ONE (09:27)
[2024-03-22] MEDS: NEURONTIN PO ONE (09:27)
[2024-03-22] MEDS ORDERED: EXPAREL 133 MG/10 ML VIAL IJ ONE (10:33)
[2024-03-22] MEDS ORDERED: Marcaine Mpf 0.5% Vial 30 Ml ONE (10:33)
[2024-03-22] MEDS ORDERED: SUBLIMAZE 100 MCG/2 ML ONE ×2 (10:34→15:37)
[2024-03-22] MEDS ORDERED: Versed 2 MG/2 ML Injection ONE (10:34)
[2024-03-22] MEDS ORDERED: Xylocaine-Mpf 2% 5 Ml Vial ONE (10:34)
[2024-03-22 12:39] LABS: Absolute Neutrophil Ct (ANC) 7.73 x10^3/uL (1.78-5.38); BASOPHIL % 0.6 % (0.2-1.2); Basophil (Absolute #) 0.06 x10^3/uL (0.01-0.08); Eosinophil % 1.5 % (0.8-7.0); Eosinophil (Absolute #) 0.15 x10^3/uL (0.04-0.54); Hemoglobin 11.6 g/dL (13.7-17.5); IMMATURE GRAN # 0.05 x10^3u/L (0.001-0.031); IMMATURE GRAN % 0.5 % (0.001-0.429); Lymphocyte (Absolute #) 1.46 x10^3/uL (1.32-3.57); Lymphocytes % 14.1 % (21.8-53.1); Mean Cell Volume 88.7 fL (79.0-92.2); Mean Corpuscular Hemoglobin 28.6 pg (25.7-32.2); Mean Corpuscular Hgb Concent. 32.2 g/dL (32.3-36.5); Mean Platelet Volume 9.6 fL (9.4-12.4); Monocyte (Absolute #) 0.87 x10^3/uL (0.30-0.82); Monocytes % 8.4 % (5.3-12.2); Neutrophil % 74.9 % (34.0-67.9); Platelet Count 379 x10^3/uL (163-337); Red Blood Count 4.06 x10^6/uL (4.63-6.08); Red Cell Distribution Width 13.7 % (11.6-14.4); White Blood Count 10.3 x10^3/uL (4.23-9.07)
[2024-03-22 12:53] LABS: ALBUMIN 4.2 g/dL (3.5-5.0); ANION GAP 14.8 MEQ/L (5-15); BILIRUBIN,TOTAL 0.4 mg/dL (0.2-1.3); Calcium 9.7 mg/dL (8.4-10.2); Creatinine 1 0.75 mg/dL (0.66-1.25); EST GLOMERULAR FILTRATION RATE 98.3 ML/MIN; Potassium 4.2 mmol/L (3.5-5.1); Total Protein 7.5 g/dL (6.3-8.2)
[2024-03-22] MEDS ORDERED: DIPRIVAN 200 MG/20 ML IV ONE (12:54)
[2024-03-22] MEDS ORDERED: ROCURONIUM BROMIDE IV ONE (12:54)
[2024-03-22] MEDS ORDERED: Decadron 4 MG INJ ONE (12:54)
[2024-03-22] MEDS ORDERED: Zofran 4 MG/2 ML VIAL ONE (12:54)
[2024-03-22] MEDS ORDERED: BRIDION 200MG/2ML IV ONE (14:43)
[2024-03-22] MEDS ORDERED: TORAdol 30 mg Injection ONE (14:43)
--- NOTE | 2024-03-22 15:06 | XRAY ---
Indication: Right ankle hardware removal, partial talectomy, and ORIF fibular fracture. Intraoperative fluoroscopy provided for 3 minutes 53 seconds. 15 digital spot images submitted for interpretation ultimately demonstrates exchange of distal fibula fixation plate/screws. Correlate with intraoperative findings/report.
[2024-03-22] MEDS ORDERED: Naropin 0.5% 30 ML VIAL ONE (15:47)
[2024-03-22] MEDS ORDERED: DEXMEDETOMIDINE 80 MCG/20ML-NS IV ONE (15:47)
[2024-03-22] MEDS ORDERED: XYLOCAINE 2%/Epi 1:200000 20ML VIAL MPF ONE (15:48)
[2024-03-22 16:30] VITALS: PULSE 81; RESP 18
[2024-03-22 16:38] VITALS: BP 131/83; O2SAT 94
[2024-03-22 16:40] VITALS: TEMP 98
--- NOTE | 2024-03-23 09:03 | XRAY ---
3 minutes and 53 seconds of fluoroscopy was used in surgery for a right ankle hardware removal, partial talectomy, and ORIF fibular fracture.
--- NOTE | 2024-03-26 08:44 | OP ---
SURGERY DATE/TIME: 03/22/2024 [id number] PREOPERATIVE DIAGNOSES: 1) Painful retained hardware. 2) Unstable fibular fracture, right ankle. 3) Exostosis of talus. 4) Right ankle pain. POSTOPERATIVE DIAGNOSES: 1) Painful retained hardware. 2) Unstable fibular fracture right ankle. 3) Exostosis of talus. 4) Right ankle pain. PROCEDURES: 1) Exostectomy of talus, partial right. 2) Removal of hardware. 3) Open reduction and internal fixation of right fibula. SURGEON: Apollo Villegas DPM WATER RESOURCE CONSULTANT: None. ANESTHESIA: General plus a preoperative popliteal and saphenous block. ESTIMATED BLOOD LOSS: Approximately 10 mL. MATERIALS: 4-0 Monocryl, 3-0 nylon, and a 6-hole distal lateral fibula plate from [employer]. INJECTABLES: See anesthesia report for details. HEMOSTASIS: A thigh tourniquet set to 320 mmHg for a total of 60 total tourniquet minutes. INDICATIONS: Patient is a very pleasant 68-year-old male who recently had undergone a fibular osteotomy with placement of a [employer] total ankle trabecular metal total ankle replacement. At his 1-week followup, patient did demonstrate some loosening of the lateral fibular hardware as well as a bone block at the anterior aspect of the talus which, on range of motion testing, did provide for a significant block of the talus anteriorly. From that standpoint, patient was made aware of all risks, complications, and benefits of surgical intervention at this time including but not limited to infection, hematoma, seroma, possibility of delayed wound healing, non-wound healing, and possible need for further surgical intervention. No guarantees were provided as to the outcome of surgical intervention at this time. Plenty of time was allowed for the patient to ask questions, which were answered to his apparent satisfaction. It was at this time we decided to proceed. DESCRIPTION OF PROCEDURE AND FINDINGS: Patient was brought into the PACU prior to the procedure and provided a popliteal and saphenous block. Following this, patient was brought into the operating room and placed on the operating room table in the supine position, and general anesthesia was administered. At this time, a well-padded thigh tourniquet was applied to the patient's right upper thigh. The tourniquet was set to 325 mmHg at this time. The right lower extremity was prepped and draped in the typical sterile fashion and lowered onto the surgical field. At this time, an Esmarch was utilized to exsanguinate the leg. The lateral incision was carried down to the level of bone utilizing a 10 blade, being careful not to damage any neurovascular structures along the way. Once this occurred, the plate was identified and the hardware was removed. Fluoroscopy was utilized to confirm that all the hardware was removed from this site. The fibular fracture then was flapped down in order to gain access to the tibiotalar joint where a rongeur and osteotome were utilized to remove the exostosis off the dorsal aspect of the talar neck. Range of motion was once again tested and significant improvement in range of motion was assessed at this time. Once this was performed, copious amounts of sodium chloride were utilized to flush the surgical site. Following this, the fibula was reduced with a pointed reduction forceps. Once this was performed, a 6-hole [employer] lateral anatomic plate was placed. Locking screws were placed in position distally and then a cortical screw was placed just proximal to the fracture, reducing the fracture and eccentrically compressing the fracture site. Once this was performed, a combination of locking and non-locking screws were then utilized to secure the fracture. Range of motion testing was once again performed. The ATFL was repaired once again utilizing 2-0 Vicryl. From that standpoint, iodine was placed within the incision and let sit for 1 minute. Following this, this was flushed with 500 mL of sodium chloride. Monocryl 4-0 was utilized to coapt the subcutaneous skin edges and 3-0 nylon was utilized in a horizontal mattress-type fashion. Following this, the leg was cleansed and dried. A dressing consisting of Betadine, Adaptic, 4 x 4, Kerlix, ABD, and a well-padded posterior splint with sugar tong was applied to the patient's right lower extremity with the foot orthogonal relative to the longitudinal axis of the leg. The patient was then reversed from anesthesia and returned to the postoperative anesthesia care unit with vital signs stable and vascular status intact. The patient handled the anesthesia as well as the procedure without significant complication. Postoperative orders as indicated in the patient's discharge chart.
== END 2024-03-22 16:40 | disposition home or self-care (01) ==
LOC: SDC 09:03
PROVIDERS: ATTEND Podiatrist Foot & Ankle Surgery
DX: T84.84XA Pain due to internal orthopedic prosthetic devices, implants and grafts, initial encounter (principal); M25.571 Pain in right ankle and joints of right foot; M25.774 Osteophyte, right foot; S82.64XA Nondisplaced fracture of lateral malleolus of right fibula, initial encounter for closed fracture
CPT/HCPCS: 20680; 27822; 28120; 36415; 73610; 76000; 76937; 80053; 85025; C1713; J0690; J1100; J1885; J2250; J2405; J2704; J2795; J3010; A9270-GY

== ENCOUNTER 2024-05-06 14:47 | Emergency (ER) | payer MEDICARE ==
--- NOTE | 2024-05-06 15:08 | ERPHSYRPT ---
- History of Present Illness Time Seen by Provider: 05/06/24 15:08 Source: patient, family Exam Limitations: no limitations Physician History: Pt has had pain right ankle with swelling SP surgery adn they told him to come to ER . He has had the numbness and pain for a number of weeks without change today but came to have it checked out. No recent trauma. Good dopler but toes white and cool. red foot, wound appears healing without drainage, culture taken, Discussed with pt and available family risks and benefits of testing/Tx including CBC, CMP, CT angio US, Antibiotic and they wish to proceed so these are ordered. family in ER as independent source for Hx. Results discussed with pt and available family. Method of Injury: unknown Occurred: days ago Quality: intermittent, aching, burning Severity of Pain-Max: moderate Severity of Pain-Current: moderate Lower Extremities Pain: foot: right, ankle: right Modifying Factors: Improves With: movement Associated Symptoms: none Allergies/Adverse Reactions: erythromycin base Allergy (Verified 05/06/24 15:12) Home Medications: Atorvastatin Calcium [Lipitor 20MG Tablet] 20 mg PO DAILY 10/14/15 [History] Fenofibrate,Micronized 145 mg* [Tricor 145 MG] 48 mg PO DAILY 10/14/15 [History] Hydrocodone/APAP 10/325 mg [[place] 10/325 MG TableT] 1 tab PO Q6H PRN PRN 10/14/15 [History] Albuterol 2.5 mg/3 ml Neb [Proventil 2.5 mg/3 ml Neb] 2.5 mg NEB UD 02/01/24 [History] Albuterol Sulfate [Albuterol Sulfate Hfa] 8.5 gm IH Q6HPRN PRN 03/13/24 [History] Apixaban [Eliquis] 2.5 mg PO BID 03/14/24 [History] Aspirin EC 81 mg [Ecotrin 81 mg] 81 mg PO DAILY 03/21/24 [History] Hx Tetanus, Diphtheria Vaccination/Date Given: No Hx Influenza Vaccination/Date Given: No Hx Pneumococcal Vaccination/Date Given: Yes Travel Risk - Emerging Infectious Disease Are you exhibiting symptoms associated with any current EIDs: No - Review of Systems Constitutional: No Fever, No Chills Eyes: No Symptoms Ears, Nose, & Throat: No Symptoms Respiratory: No Cough, No Dyspnea Cardiac: No Chest Pain, No Edema, No Syncope Abdominal/Gastrointestinal: No Abdominal Pain, No Nausea, No Vomiting, No Diarrhea Genitourinary Symptoms: No Dysuria Musculoskeletal: No Back Pain, No Neck Pain Skin: No Symptoms, No Rash Neurological: No Dizziness, No Focal Weakness, No Sensory Changes Psychological: No Symptoms Endocrine: No Symptoms Hematologic/Lymphatic: No Symptoms Immunological/Allergic: No Symptoms All Other Systems: Reviewed and Negative - Past Medical History Pertinent Past Medical History: Yes Neurological History: Other ENT History: Cataracts Cardiac History: No Pertinent History Respiratory History: COPD Endocrine Medical History: No Pertinent History Musculoskeletal History: Osteoarthritis GI Medical History: No Pertinent History History: No Pertinent History Psycho-Social History: No Pertinent History Male Reproductive Disorders: No Pertinent History Other Medical History: NUMBNESS IN R TOES. BACK PAIN. R ANKLE SURGERIES ON 02/14/24 FOR A FUSION, 03/13/24 FOR SOMETHING THE PATIENT COULDN'T REMEMBER, 03/22/24 FOR THE ARTHROPLASTY. - Past Surgical History Past Surgical History: Yes Neuro Surgical History: No Pertinent History Cardiac: No Pertinent History Respiratory: No Pertinent History Gastrointestinal: Hernia Repair, Other Genitourinary: No Pertinent History Musculoskeletal: Joint Replacement, Orthopedic Surgery Male Surgical History: No Pertinent History Other Surgical History: back surgery x3 , hiatal hernia repair, orthopedic suregery for R leg frature with hardware, right ankle surgery, rt ankle replacement - Social History Smoking Status: Former smoker How long have you smoked: 45 years Exposure to second hand smoke: Yes Drug Use: none Patient Lives Alone: No - Social Determinants of Health Will the patient participate in the screening: Yes Do you worry about a steady place to live?: No In the past 12 months,have you had to go without utilities?: No Transportation Issues: No Has anyone in your support network made you feel unsafe?: No Have you or anyone in your house had to go without enough: No - Nursing Vital Signs Nursing Vital Signs: Initial Vital Signs Blood Pressure 134/95 05/06/24 15:02 Pain Scale Pain Intensity 7 - Physical Exam General Appearance: alert Eyes, Ears, Nose, Throat Exam: moist mucous membranes Neck Exam: non-tender, supple Cardiovascular/Respiratory Exam: chest non-tender, normal breath sounds, regular rate/rhythm, no respiratory distress Gastrointestinal/Abdominal Exam: non-tender, guarding Back Exam: normal inspection, No vertebral tenderness Hips Exam: bilateral: non-tender, normal inspection, normal range of motion, no evidence of injury Legs Exam: right leg: pain, soft tissue tenderness, swelling, left leg: non- tender, normal inspection, normal range of motion, no evidence of injury Knees Exam: bilateral knee: non-tender, normal inspection, normal range of motion, no evidence of injury Ankle Exam: right ankle: pain, soft tissue tenderness, swelling, other (erythema), left ankle: non-tender, normal inspection, normal range of motion, no evidence of injury Foot Exam: right foot: pain, soft tissue tenderness, swelling, other (redness), left foot: non-tender, normal inspection, normal range of motion, no evidence of injury DTR - Lower Extremities Exam: knee (R): 2+, knee (L): 2+, ankle (R): 2+, ankle (L): 2+ Neuro/Tendon Exam: normal sensation, normal motor functions Mental Status Exam: alert, oriented x 3, cooperative Skin Exam: normal color, warm, dry SpO2 Interpretation: normal SpO2: 95 O2 Delivery: Room Air - Course Nursing assessment & vital signs reviewed: Yes - CT Exams Lower Extremity CT Interpretation: Tele-radiologist Report, Other (altherosclerosis but no blockages and digital arteries fill/perfuse. collection right calc.) - Radiology Ultrasound Exam Venous Lower Extremity Ultrasound: Other (No DVT. ) Ordered Tests: Active Orders 24 hr Category Date Time Status IV Insertion STAT Care 05/06/24 15:12 Active CTA LOWER EXTREMITY W CONTRAST [CT] Stat Exams 05/06/24 16:53 Completed VENOUS UNILAT/LIMITED EXTREMIT [US] Stat Exams 05/06/24 15:11 Completed CBC W DIFF Stat Lab 05/06/24 15:19 Completed CMP Stat Lab 05/06/24 15:19 Completed CULTURE,WOUND Routine Lab 05/06/24 17:40 Received ESR [Erythrocyte Sedimentation Rate] Stat Lab 05/06/24 15:19 Completed Lactic Acid Stat Lab 05/06/24 15:15 Completed Lactic Acid Stat Lab 05/06/24 17:21 Received Medication Summary Discontinued Medications Generic Name Dose Route Start Last Admin Trade Name Freq PRN Reason Stop Dose Admin Ceftriaxone Sodium 1 gm in 100 mls @ 200 mls/hr 05/06/24 16:04 05/06/24 17:40 Rocephin 1 Gm / 100 Ml Nacl IV 05/06/24 16:33 Infused STAT ONE Infusion Ceftriaxone Sodium Confirm 05/06/24 16:17 Rocephin 1 Gm / 100 Ml Nacl Administered 05/06/24 16:18 Dose 1 gm in 100 mls @ ud IV .STK-MED ONE Lab/Rad Data: Laboratory Result Diagrams 05/06/24 15:19 05/06/24 15:19 Laboratory Results 05/06/24 05/06/24 05/06/24 Range/Units 15:19 15:19 15:19 WBC 7.8 (4.23-9.07) x10^3/uL RBC 5.01 (4.63-6.08) x10^6/uL Hgb 13.7 (13.7-17.5) g/dL Hct 43.1 (40.1-51.0) % MCV 86.0 (79.0-92.2) fL MCH 27.3 (25.7-32.2) pg MCHC 31.8 L (32.3-36.5) g/dL RDW 14.0 (11.6-14.4) % Plt Count 299 (163-337) x10^3/uL MPV 9.4 (9.4-12.4) fL Gran % 64.6 (34.0-67.9) % Immature Gran % (Auto) 0.4 (0.001-0.429) % Nucleat RBC Rel Count 0.0 (0.00-0.2) % Eos # (Auto) 0.25 (0.04-0.54) x10^3/uL Immature Gran # (Auto) 0.03 (0.001-0.031) x10^3u/L Absolute Lymphs (auto) 1.69 (1.32-3.57) x10^3/uL Absolute Monos (auto) 0.75 (0.30-0.82) x10^3/uL Absolute Nucleated RBC 0.00 (0.00-0.012) x10^3u/L Lymphocytes % 21.6 L (21.8-53.1) % Monocytes % 9.6 (5.3-12.2) % Eosinophils % 3.2 (0.8-7.0) % Basophils % 0.6 (0.2-1.2) % Absolute Granulocytes 5.06 (1.78-5.38) x10^3/uL Basophils # 0.05 (0.01-0.08) x10^3/uL ESR 16 H (0-15) mm/hr Sodium 140 (135-145) mmol/L Potassium 3.8 (3.5-5.1) mmol/L Chloride 107 (98-107) mmol/L Carbon Dioxide 22 (22-30) mmol/L Anion Gap 14.3 (5-15) MEQ/L BUN 19 (9-20) mg/dL Creatinine 0.92 (0.66-1.25) mg/dL Estimated GFR 90.6 ML/MIN Glucose 134 H (74-106) mg/dL Lactic Acid (0.4-2.0) Calcium 10.1 (8.4-10.2) mg/dL Total Bilirubin 0.40 (0.2-1.3) mg/dL AST 40 (17-59) U/L ALT 41 (0-50) U/L Alkaline Phosphatase 89 (38-126) U/L Serum Total Protein 7.7 (6.3-8.2) g/dL Albumin 4.6 (3.5-5.0) g/dL 05/06/24 Range/Units 15:15 WBC (4.23-9.07) x10^3/uL RBC (4.63-6.08) x10^6/uL Hgb (13.7-17.5) g/dL Hct (40.1-51.0) % MCV (79.0-92.2) fL MCH (25.7-32.2) pg MCHC (32.3-36.5) g/dL RDW (11.6-14.4) % Plt Count (163-337) x10^3/uL MPV (9.4-12.4) fL Gran % (34.0-67.9) % Immature Gran % (Auto) (0.001-0.429) % Nucleat RBC Rel Count (0.00-0.2) % Eos # (Auto) (0.04-0.54) x10^3/uL Immature Gran # (Auto) (0.001-0.031) x10^3u/L Absolute Lymphs (auto) (1.32-3.57) x10^3/uL Absolute Monos (auto) (0.30-0.82) x10^3/uL Absolute Nucleated RBC (0.00-0.012) x10^3u/L Lymphocytes % (21.8-53.1) % Monocytes % (5.3-12.2) % Eosinophils % (0.8-7.0) % Basophils % (0.2-1.2) % Absolute Granulocytes (1.78-5.38) x10^3/uL Basophils # (0.01-0.08) x10^3/uL ESR (0-15) mm/hr Sodium (135-145) mmol/L Potassium (3.5-5.1) mmol/L Chloride (98-107) mmol/L Carbon Dioxide (22-30) mmol/L Anion Gap (5-15) MEQ/L BUN (9-20) mg/dL Creatinine (0.66-1.25) mg/dL Estimated GFR ML/MIN Glucose (74-106) mg/dL Lactic Acid 2.8 H (0.4-2.0) Calcium (8.4-10.2) mg/dL Total Bilirubin (0.2-1.3) mg/dL AST (17-59) U/L ALT (0-50) U/L Alkaline Phosphatase (38-126) U/L Serum Total Protein (6.3-8.2) g/dL Albumin (3.5-5.0) g/dL - Progress Progress: improved, re-examined Progress Note: 05/06/24 18:[address] Walters and he reviewed the vascular studies performed tonight and they look good without significant concerns - I advised him of hte Ct collection and we agreed to start AB and he will f/u with pt in office in am. Pt is also advised that additional pathology may still be undetected vascular or infection or other and he prefers this outpt f/u rather than further eval in ER or obs in hosp or transfer and has the capacity to make this choice. Discussed with DrAnnika: Other (Dr. Walters) Will see patient in: office Counseled pt/family regarding: lab results, diagnosis, need for follow-up, rad results Medical Desision Making - Independent Historian Additional History obtained from: Family - Discussion of managment Care discussed with:: specialist Reviewed:: Test results, Need for additional workup Agreed on:: Treatment plan, need for follow-up - Diagnostic Testing Diagnostic test were ordered, analyzed, and reviewed by me: Yes Radiological Interpretation: Teleradiologist Report - Risk of complications The pt has a mod risk of morbidity or mortality based on: Need for prescription drug management The pt has a high risk of morbidity or mortality based on: Decision regarding hospitilization or escalation of hosp level of care - Departure Departure Disposition: Home Clinical Impression: post op pain and other symptoms, Cellulitis Condition: Good Critical Care Time: No Referrals: SANDOR WALKER MD [Primary Care Provider] - Follow up/PCP as directed Instructions: Cellulitis (skin infection) in adults - ED discharge instructions Additional Instructions: We are treating for an infection as a precaution, but there may be additional conditions developing even though the studies done did not show a specific immediate concern. This is why seeing Dr. Walters tomorrow in clinic is very important. Return meantime if increased pain, fever, vomiting drainage increased numbness or other concerns. Prescriptions: Cephalexin Mh 500 mg [Keflex 500 mg] 500 mg PO Q6H #30 cap
[2024-05-06 15:12] VITALS: BP 134/95; PULSE 106; TEMP 97.9
[2024-05-06 15:23] LABS: Absolute Neutrophil Ct (ANC) 5.06 x10^3/uL (1.78-5.38); BASOPHIL % 0.6 % (0.2-1.2); Basophil (Absolute #) 0.05 x10^3/uL (0.01-0.08); Eosinophil % 3.2 % (0.8-7.0); Eosinophil (Absolute #) 0.25 x10^3/uL (0.04-0.54); Hematocrit 43.1 % (40.1-51.0); Hemoglobin 13.7 g/dL (13.7-17.5); IMMATURE GRAN # 0.03 x10^3u/L (0.001-0.031); IMMATURE GRAN % 0.4 % (0.001-0.429); Lymphocyte (Absolute #) 1.69 x10^3/uL (1.32-3.57); Lymphocytes % 21.6 % (21.8-53.1); Mean Corpuscular Hemoglobin 27.3 pg (25.7-32.2); Mean Corpuscular Hgb Concent. 31.8 g/dL (32.3-36.5); Mean Platelet Volume 9.4 fL (9.4-12.4); Monocyte (Absolute #) 0.75 x10^3/uL (0.30-0.82); Monocytes % 9.6 % (5.3-12.2); Neutrophil % 64.6 % (34.0-67.9); Platelet Count 299 x10^3/uL (163-337); Red Blood Count 5.01 x10^6/uL (4.63-6.08); White Blood Count 7.8 x10^3/uL (4.23-9.07)
[2024-05-06 15:52] LABS: ALBUMIN 4.6 g/dL (3.5-5.0); ANION GAP 14.3 MEQ/L (5-15); BILIRUBIN,TOTAL 0.4 mg/dL (0.2-1.3); Calcium 10.1 mg/dL (8.4-10.2); Creatinine 1 0.92 mg/dL (0.66-1.25); EST GLOMERULAR FILTRATION RATE 90.6 ML/MIN; Potassium 3.8 mmol/L (3.5-5.1); Total Protein 7.7 g/dL (6.3-8.2)
[2024-05-06] MEDS ORDERED: ROCEPHIN 1 GM / 100 ML NaCl 1 GM/100 ML IVPB IV ONE (16:17)
[2024-05-06] MEDS: ROCEPHIN 1 GM / 100 ML NaCl 1 GM/100 ML IVPB IV ONE (16:28)
--- NOTE | 2024-05-06 17:50 | XRAY ---
CLINICAL HISTORY: white toes after surgery right ankl COMPARISON: 03/20/2024 CR reviewed. TECHNIQUE: Thin axial sections of the right lower extremity have been acquired with contrast. coronal and sagittal sections have also been acquired.One of the following dose reduction techniques was utilized for this exam.Automated exposure control, adjustment of the mA and/or kV according to patient size, and use of iterative reconstruction.One of these 3D techniques was utilized: Maximum Intensity Pixel (MIP), 3D Reconstructed Images, Volume Rendered Images, Surface Shaded Rendering. FINDINGS: Moderate atherosclerotic changes are noted in the visualized part of the distal abdominal aorta in the form of dense calcific and soft tissue ulcerative plaques without any significant luminal narrowing. Both iliac arteries show normal origin and opacification. No luminal stenosis. Both iliac arteries show the normal origin of their branches namely external and internal iliac arteries which are normally opacified bilaterally. The common femoral shows normal contrast uptake below the level of the inguinal ligament on both sides. Both the superficial femoral, deep femoral, and popliteal arteries show mild to moderate atherosclerotic changes without any significant luminal compromise. Normal trifurcation is noted in anterior and posterior tibial and peroneal arteries. The anterior and posterior tibial and peroneal arteries show normal contrast opacification throughout the course. Visualized digital arteries also show contrast uptake. No aneurysmal dilatation, thrombosis, or area of dissection is noted. The intramedullary nail is seen intact in the right femur. The intramedullary nails and fixators at the level of the right ankle joint are also stable. Surrounding soft tissue edema is also noted. A 3.2 x 1.5 cm collection is also identified along the medial surface of the reconstructed calcaneum. Lower lumbar intraspinal fixators are normally visualized. IMPRESSION: 1. Mild to moderate atherosclerotic changes were seen in the vessels of both lower limbs without any significant luminal compromise throughout their course. 2. Internal fixators are seen intact. 3. Soft tissue edema is noted at the level of the right ankle. A 3.2 x 1.5 cm collection is also identified along the medial surface of the reconstructed calcaneum. Electronically Signed by: Leida Nguyen MD. (05/06/2024 17:45:33 EST)
[2024-05-06 18:13] VITALS: O2SAT 95
--- NOTE | 2024-05-06 18:24 | XRAY ---
Indication: Right leg swelling and erythema. Two-dimensional sonogram and color Doppler imaging major venous vessels right leg performed. Comparison: February 17 and March 20, 2024 No thrombus seen in the examined deep venous vessels right leg including greater saphenous vein. Veins demonstrate normal compressibility. Venous waveforms are normal with and without augmentation. Impression: Right leg continues to be negative for DVT. Comment: Preliminary report was given.
== END 2024-05-06 18:50 | disposition home or self-care (01) ==
LOC: ED 14:47
DX: L03.115 Cellulitis of right lower limb (principal); G89.18 Other acute postprocedural pain; M79.671 Pain in right foot; Z79.01 Long term (current) use of anticoagulants; Z79.899 Other long term (current) drug therapy
CPT/HCPCS: 36415; 73706; 80053; 83605; 85025; 85652; 87070; 93971; 96365; 99285; J0696